=== PATIENT | female | born 1985 | race Caucasian/White ===

== ENCOUNTER 2020-01-10 11:46 | Emergency (ER) | payer SELFPAY ==
[2020-01-10 11:55] VITALS: BP 115/89; PULSE 84; RESP 20; TEMP 36.7; O2SAT 100
--- NOTE | 2020-01-10 12:26 | ED.SKABFB ---
HPI - Skin/Abscess/Foreign Bdy General Chief complaint: Skin/Abscess/Foreign Body Stated complaint: rash Time Seen by Provider: 01/10/20 12:27 Source: patient Mode of arrival: ambulatory Limitations: no limitations History of Present Illness HPI narrative: Dori Bruno is a 34 yo female with no prior medical history comes to the doctor's office with contact dermatitis appearing rash on hands arms back buttocks and back of the legs. 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 Personal laundry they have washed everything multiple times. Rashes not appear to be bedbugs but more like scabies Related Data Allergies Allergy/AdvReac Type Severity Reaction Status Date / Time No Known Allergies Allergy Verified 01/10/20 12:13 Review of Systems Review of Systems: Narrative: CONSTITUTIONAL: Denies fever, chills, sweats. EYES: Denies visual changes, redness, discharge. ENT: Denies rhinorrhea, congestion, sore throat, otalgia. CARDIOVASCULAR: Denies chest pain, palpitations, edema. RESPIRATORY: Denies dyspnea, wheezing, cough GASTROINTESTINAL: Denies abdominal pain, nausea, vomiting, diarrhea. GENITOURINARY: Denies dysuria, hematuria, abnormal discharge SKIN: itching. Arms legs buttocks, hairline NEUROLOGIC: Denies numbness, or focal weakness. PSYCHIATRIC: Denies anxiety or depression. PMFSH Family History Family History Other Asthma Social History Social History Smoking status: Never smoker Alcohol intake: never Comments At time of signature, I agree with nursing past medical, surgical, social and family history. There is no relevant family history pertinent to the presenting complaint. Exam Narrative: Exam Narrative: GENERAL: This is a well-nourished, well-developed patient, in moderate distress. HEAD: normocephalic, atraumatic. EYES: PERRL. Sclera clear/white. Vision is grossly intact. EARS: External ears normal, Hearing grossly intact. NOSE: External nose normal with no obvious nasal discharge, nares without redness, no rhinorrhea. THROAT: Mucous membranes moist, p NECK: Neck supple, non-tender without lymphadenopathy, masses or thyromegaly. CARDIOVASCULAR: Regular rate and rhythm without murmurs, gallops, or rubs. RESPIRATORY: Clear to auscultation. Breath sounds equal bilaterally. No wheezes, rales, or rhonchi. GASTROINTESTINAL: Abdomen soft, non-tender, nondistended. Bowel sounds are active. No hepato-splenomegaly, or palpable masses. No guarding. SKIN: warm, intact -rash on arms back buttocks back of knees that is inflamed, pruritic, rash along hairline NEURO: awake, alert, and oriented to person, place and time. There were no obvious focal neurologic abnormalities. Steady gait EXTREMITIES: Normal range of motion. No edema. No calf tenderness. Negative Homans sign bilaterally. BACK: Nontender without deformity or crepitance. . Course Course Emergency Course: Started on contact dermatitis meds including Atarax prednisone dose pack Pepcid and Benadryl Vital Signs Vital signs: Vital Signs Temperature 98.0 F 01/10/20 11:55 Pulse Rate 84 01/10/20 11:55 Respiratory Rate 20 01/10/20 11:55 Blood Pressure 115/89 01/10/20 11:55 Pulse Oximetry 100 01/10/20 11:55 Temperature 98.0 F 01/10/20 11:55 Pulse Rate 84 01/10/20 11:55 Respiratory Rate 20 01/10/20 11:55 Blood Pressure 115/89 01/10/20 11:55 Pulse Oximetry 100 01/10/20 11:55 MDM - Skin/Abscess/Foreign Bdy Differential Diagnosis Differential diagnosis: Likely eczema, insect bites, contact dermatitis and other Discharge Plan Discharge Clinical Impression: Insect bites, Urticaria Contact dermatitis Qualifiers: Contact dermatitis type: allergic Contact dermatitis trigger: other trigger Qualified Code(s): L23.89 - Allergic contact
== END 2020-01-10 12:48 | disposition home or self-care (01) ==
PROVIDERS: Emergency Provider Nurse Practitioner; PCP Physician Assistant
DX: S40.862A Insect bite (nonvenomous) of left upper arm, initial encounter (principal); S40.861A Insect bite (nonvenomous) of right upper arm, initial encounter; S30.860A Insect bite (nonvenomous) of lower back and pelvis, initial encounter; S80.262A Insect bite (nonvenomous), left knee, initial encounter; S80.261A Insect bite (nonvenomous), right knee, initial encounter; L23.89 Allergic contact dermatitis due to other agents; W57.XXXA Bitten or stung by nonvenomous insect and other nonvenomous arthropods, initial encounter
CPT/HCPCS: 99203; G0463

== ENCOUNTER 2022-04-01 15:37 | Emergency (ER) | payer OTHER, SELFPAY ==
--- NOTE | ~2022-04-01 | CT_ITS ---
EXAMINATION: CT abdomen pelvis wo con DATE: 04/01/2022 18:45 INDICATION: Right lower and left lower quadrant pain for 2 weeks. Diarrhea. TECHNIQUE: Computed tomography (CT) of the abdomen and pelvis was performed without intravenous contr ast. The dose-length product was 392.35 mGy-cm. Automated exposure control and iterative reconstructi on technique were employed. COMPARISON: None. FINDINGS: Lung bases are unremarkable. Heart size normal. No significant pleural or pericardial effus ion. The liver, spleen, pancreas, adrenal glands and kidneys and are unremarkable. Gallbladder is pre sent. Nonobstructive bowel gas pattern. Colonic diverticulosis without evidence for diverticulitis. T here is levoscoliosis. The appendix is not positively visualized. There is no pericecal inflammatory change to suggest appendicitis. No free air or free fluid is identified. IMPRESSION: 1. No acute abnormality of the abdomen or pelvis. Reviewed, dictated and finalized at location A.
[2022-04-01 15:47] VITALS: BP 134/73; PULSE 57; RESP 16; TEMP 36.3; O2SAT 100
[2022-04-01 15:54] VITALS: BP 121/72; PULSE 64; RESP 18; O2SAT 98
--- NOTE | 2022-04-01 16:45 | ED.ABDPAIN ---
HPI - Abdominal Pain General Chief Complaint: Abdominal Pain Stated Complaint: Right Lower ABD Pain Time Seen by Provider: 04/01/22 15:53 Source: patient Mode of arrival: ambulatory Limitations: no limitations History of Present Illness HPI narrative: Patient is a 36-year-old female who presents to the ED with report of lower abdominal pain. Patient reports having pain in her lower abdomen for the past 3 weeks, worsening over the past 3 days. She states the pain begins in her left lower quadrant but seems to be more focal in her right lower quadrant. She has taken Tylenol and Advil for this at home without much relief. She reports having occasional nausea and diarrhea, but denies rectal bleeding, constipation, vomiting. No nausea currently. Denies any fever, chills, recent cough or cold symptoms. She does mention having urinary urgency with small void urine, but denies any dysuria or hematuria. Related Data Allergies Allergy/AdvReac Type Severity Reaction Status Date / Time No Known Allergies Allergy Verified 01/10/20 12:13 Review of Systems Review of Systems: CONSTITUTIONAL: Denies fever, chills. CARDIOVASCULAR: Denies chest pain. RESPIRATORY: Denies cough or dyspnea. GASTROINTESTINAL: Reports bilateral lower ABD pain, nausea, diarrhea. Denies vomiting, rectal bleeding, or constipation. GENITOURINARY: Reports urinary urgency with small void urine. Denies dysuria or hematuria. SKIN: Denies rash or itching. MUSCULOSKELETAL: Denies back pain. All systems reviewed & are unremarkable except as noted in HPI and below PMFSH Past Medical History Medical History (Updated 04/01/22 @ 19:59 by Niurka Watson PA-C) Anxiety Bipolar disorder Surgical History Surgical History (Updated 04/01/22 @ 16:56 by Niurka Watson PA-C) History of tubal ligation Family History Family History Other Asthma Social History Social History (Updated 04/01/22 @ 16:56 by Niurka Watson PA-C) Smoking status: Current every day smoker Tobacco type: e-cigarettes/vaping Alcohol intake: never Exam Narrative: GENERAL: Well appearing, well-nourished, non-toxic, in no acute distress. HEAD: Normocephalic, atraumatic. NECK: Supple. No adenopathy, no masses. RESPIRATORY: Airway patent, respirations nonlabored. Clear to auscultation bilaterally, no rales, rhonchi, wheezing. CARDIOVASCULAR: Regular rate and rhythm without murmurs, rubs, or gallops. Radial pulses 2+ and equal bilaterally. ABDOMINAL: Soft, mild nonspecific tenderness to palpation in left lower quadrant, right lower quadrant, suprapubic region, nondistended, no hepatosplenomegaly. Normoactive BS. MUSCULOSKELETAL: Moves all extremities. Strength/ROM intact without gross deformities or TTP. SKIN: Warm, dry, normal color. No rashes. NEURO: A&O X3. Speech clear. Cranial nerves II-XII grossly intact. Steady gait. No ataxic movements. PSYCHIATRIC: Appropriate mood and affect. Normal interaction. Course Vital Signs Vital signs: Vital Signs Temperature 97.4 F L 04/01/22 15:47 Pulse Rate 57 L 04/01/22 15:47 Respiratory Rate 16 04/01/22 15:47 Blood Pressure 134/73 04/01/22 15:47 Pulse Oximetry 100 04/01/22 15:47 Oxygen Delivery Room Air 04/01/22 15:47 Temperature 97.4 F L 04/01/22 15:47 Pulse Rate 64 04/01/22 15:54 Respiratory Rate 18 04/01/22 15:54 Blood Pressure 121/72 04/01/22 15:54 Pulse Oximetry 98 04/01/22 15:54 Oxygen Delivery Room Air 04/01/22 15:47 MDM - Abdominal Pain MDM Narrative Medical decision making narrative: Patient presented to ED with 3-week history of nonspecific diffuse lower abdominal pain, worsening over the last 3 days. Vital signs stable upon arrival. Patient did have minimal tenderness on examination in lower abdomen. Laboratory evaluation notable for mild leukocytosis at 11.2. No significant electrolyte abnormality. Good kidney function. Good live
[2022-04-01 17:17] LABS: Basophils Absolute Auto 0.1 K/mm3 (0.0-0.1); Basophils Percent Auto 0.6 % (0.2-1.2); Eosinophils Percent Auto 0.4 % (0-4.4); Hematocrit 38.3 % (37.0-47.0); Hemoglobin 12.7 g/dL (12.0-15.0); Immature Granulocyte Absolute 0.05 K/mm3 (0.00-0.031); Immature Granulocyte Percent A 0.4 % (0-0.5); Lymphocytes Absolute Auto 2.94 K/mm3 (0.9-3.2); Lymphocytes Percent Auto 26.3 % (18.3-44.2); Mean Corpuscular HGB Conc 33.2 g/dl (32-36); Mean Corpuscular Hemoglobin 30.8 pg (26-34); Mean Platelet Volume 9.5 fl (7.4-10.4); Monocytes Absolute Auto 0.7 K/mm3 (0.1-0.6); Monocytes Percent Auto 6.6 % (2.6-8.5); Neutrophils Absolute Auto 7.3 K/mm3 (1.3-6.7); Neutrophils Percent Auto 65.7 % (45.5-73.1); Platelet Count Result 326 k/mm3 (150-375); Red Blood Count 4.12 M/mm3 (4.2-5.4); Red Cell Distribution Width 12.6 % (11.5-14.5); White Blood Count 11.2 K/mm3 (4.5-10.0)
[2022-04-01 17:28] LABS: Alanine Aminotransferase 11 U/L (6-35); Albumin Level 4.1 g/dL (3.5-5.1); Alkaline Phosphatase 75 U/L (38-126); Anion Gap 7 mmol/L (8-16); Aspartate Amino Transferase 24 U/L (14-36); Bilirubin,Total 0.4 mg/dL (0.2-1.3); Blood Urea Nitrogen 7 mg/dL (7-17); Calcium 8.8 mg/dL (8.4-10.2); Carbon Dioxide 23 mmol/L (22-30); Chloride 107 mmol/L (98-107); Estimated CRCL calculation 116 ml/min; Estimated Glomerular Filt Rate > 60; Glucose 93 mg/dL (65-110); Lipase 51 U/L (23-300); Potassium 3.8 mmol/L (3.4-5.0); Sodium 137 mmol/L (137-145)
[2022-04-01 17:46] LABS: Bacteria Urine Trace /hpf; Mucus Urine Moderate /lpf; Squamous Epithelial Cell Urine Many /hpf (Few)
[2022-04-01] MEDS: DICYCLOMINE HCL 10 MG CAPSULE 20 MG PO (17:47)
[2022-04-01] MEDS: SODIUM CHLORIDE 0.9% IV 1,000 ML 999 ML IV CONT (17:48)
[2022-04-01] MEDS: ONDANSETRON INJ 4 MG/2 ML VIAL IV PUSH (17:48)
[2022-04-01] MEDS: KETOROLAC 30 MG/ML VIAL (*BKC) IV PUSH (17:49)
[2022-04-01 17:55] LABS: Appearance Urine Cloudy (Clear); Color Urine Yellow (Yellow)
[2022-04-01 17:57] LABS: Add Urine Microscopic? YES; Bilirubin Urine Negative (Negative); Blood Urine Negative (Negative); Glucose Urine UA Negative (Negative); Ketones Urine Negative (Negative); Leukocyte Esterase Ur Negative LEU/UL (Negative); Nitrate Urine Negative (Negative); Protein Urine Trace mg/dL (Negative); Urobilinogen Urine 0.2 mg/dL (<2.0); pH Urine 7.5 (5.0-9.0)
[2022-04-01 19:00] VITALS: PULSE 57; RESP 18; O2SAT 99
[2022-04-01 19:19] VITALS: PULSE 79; RESP 14
--- NOTE | 2022-04-01 19:20 | PC.NURSE ---
Patient report received from RASHAD Alexander. This nurse assumed care of patient at this time.
--- NOTE | 2022-04-01 19:28 | PC.NURSE ---
called lab and added on UC to existing urine cup at 192
[2022-04-01 19:31] VITALS: PULSE 55; RESP 24
--- NOTE | 2022-04-01 19:44 | PC.NURSE ---
Patient requesting to leave AMA, PA and concrete pourer aware. Patient requesting to speak with software engineering project manager.
== END 2022-04-01 20:09 | disposition home or self-care (01) ==
PROVIDERS: Physician Assistant; Emergency Provider Emergency Medicine
DX: R10.30 Lower abdominal pain, unspecified (principal); F41.9 Anxiety disorder, unspecified; F31.9 Bipolar disorder, unspecified
CPT/HCPCS: 36415; 74176; 80053; 81001; 83690; 85025; 87086; 96361; 96365; 96375; 99284; A9270; J0131; J1885; J2405; J7030

== ENCOUNTER 2022-10-08 11:49 | Emergency (ER) | payer BC, SELFPAY ==
--- NOTE | 2022-10-08 11:50 | ED.URI ---
HPI - URI/Sore Throat General Chief Complaint: Upper Respiratory Infection Stated Complaint: ear pain and sore throat Time Seen by Provider: 10/08/22 11:50 Source: patient and RN notes reviewed History of Present Illness HPI Narrative: patient is a 36 female presents to urgent care complaints of left ear pain slight sore throat. Patient states last night and she has also grade fever. Patient taking Advil and using throat spray. Denies any known ill exposures. No acute distress noted. Patient aware of the plan of care. Some parts of this dictation were generated by voice recognition software and may contain typographical and/or grammatical inaccuracies. Related Data Allergies Allergy/AdvReac Type Severity Reaction Status Date / Time No Known Allergies Allergy Verified 10/08/22 12:02 Review of Systems Review of Systems: CONSTITUTIONAL: Denies fever, chills, or sweats. EYES: Denies visual changes, redness, or discharge. ENT: reports of left ear pain and sore throat CARDIOVASCULAR: Denies chest pain, palpitations, or edema. RESPIRATORY: Denies cough or dyspnea. GASTROINTESTINAL: Denies abdominal pain, nausea, vomiting, or diarrhea. GENITOURINARY: Denies dysuria or hematuria. SKIN: Denies rash or itching. MUSCULOSKELETAL: Denies back pain, joint pain, or myalgia. NEUROLOGIC: Denies headache, numbness, or weakness. All other systems reviewed are negative, except as documented in HPI. [facility] Past Medical History Medical History (Updated 10/08/22 @ 12:15 by DAYNA Page) Anxiety Bipolar disorder Surgical History Surgical History (Updated 04/01/22 @ 16:56 by Niurka Klein PA-C) History of tubal ligation Family History Family History Other Asthma Social History Social History (Updated 04/01/22 @ 16:56 by Niurka Klein PA-C) Smoking status: Current every day smoker Tobacco type: e-cigarettes/vaping Alcohol intake: never Comments At the time of my signature, I reviewed and agree with the nursing past medical, surgical, social, and family history. There is no relevant family history pertinent to the patient complaint. Exam Narrative: GENERAL: This is a well-nourished, well-developed patient, in no apparent distress. HEAD: normocephalic, atraumatic. EYES: PERRL. Sclera clear/white. Vision is grossly intact. EARS: External ears normal, auditory canals clear and without drainage, TMs normal without perforation. Hearing grossly intact. NOSE: External nose normal with no obvious nasal discharge, nares without redness, no rhinorrhea. THROAT: Mucous membranes moist. Moderate erythema posterior pharynx with mild to moderate bilateral tonsillar edema with exudate. Moderate postnasal drainage. NECK: Neck supple, non-tender Left submandibular lymphadenopathy CARDIOVASCULAR: Regular rate and rhythm without murmurs, gallops, or rubs. RESPIRATORY: Clear to auscultation. Breath sounds equal bilaterally. No wheezes, rales, or rhonchi. SKIN: warm, intact with no suspicious lesions or rash, good texture and turgor. NEURO: awake, alert, and oriented to person, place and time. There were no obvious focal neurologic abnormalities. EXTREMITIES: No clubbing, cyanosis, or edema. Course Course Level of Care: Express Care Visit Vital Signs Vital signs: Vital Signs Temperature 98.8 F 10/08/22 11:54 Pulse Rate 100 10/08/22 11:54 Respiratory Rate 14 10/08/22 11:54 Blood Pressure 121/70 10/08/22 11:54 Pulse Oximetry 100 10/08/22 11:54 Oxygen Delivery Room Air 10/08/22 11:54 Temperature 98.8 F 10/08/22 11:54 Pulse Rate 100 10/08/22 11:54 Respiratory Rate 14 10/08/22 11:54 Blood Pressure 121/70 10/08/22 11:54 Pulse Oximetry 100 10/08/22 11:54 Oxygen Delivery Room Air 10/08/22 11:54 reviewed MDM - URI/Sore Throat MDM Narrative Medical decision making narrative: Due to lack of re
[2022-10-08 11:54] VITALS: BP 121/70; PULSE 100; RESP 14; TEMP 37.1; O2SAT 100
== END 2022-10-08 12:18 | disposition home or self-care (01) ==
PROVIDERS: Emergency Provider Nurse Practitioner Family
DX: J03.90 Acute tonsillitis, unspecified (principal); F17.209 Nicotine dependence, unspecified, with unspecified nicotine-induced disorders
CPT/HCPCS: 99213; G0463

== ENCOUNTER 2025-01-07 10:23 | Emergency (ER) | payer SELFPAY ==
[2025-01-07 10:28] VITALS: BP 118/75; PULSE 70; RESP 16; TEMP 36.7; O2SAT 100
--- NOTE | 2025-01-07 11:12 | ED.URI ---
HPI - URI/Sore Throat General Chief Complaint: Upper Respiratory Infection Stated Complaint: respiratory problems Time Seen by Provider: 01/07/25 10:55 Source: patient, RN notes reviewed and old records reviewed Mode of arrival: ambulatory Limitations: no limitations History of Present Illness HPI Narrative: 39 year old female who presents to [facility] care with complaints of cough with complaints of chest burning which started on Monday. Patient reports some chills and sweats but no known fevers. 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 Patient reports that she has been taking DayQuil and NyQuil for her symptoms. Patient does vape daily. MD elicited complaint: cough and other (chest burning and chills and sweats) Onset (ago): day(s) (4) Severity: mild Able to tolerate fluids by mouth: Yes Treatments prior to arrival: other (DayQuil and NyQuil) Related Data Allergies Allergy/AdvReac Type Severity Reaction Status Date / Time No Known Allergies Allergy Verified 01/07/25 10:38 Review of Systems Review of Systems: CONSTITUTIONAL: Reports malaise, chills, sweats, no known fevers EYES: Denies visual changes, redness, or discharge. ENT: Reports some rhinorrhea, congestion, no sinus pain, no otalgia and no sore throat. CARDIOVASCULAR: Denies chest pain, palpitations, or edema. RESPIRATORY: Reports cough.? Denies dyspnea.reports burning in chest GASTROINTESTINAL: Denies abdominal pain, nausea, vomiting, diarrhea SKIN: Denies rash or itching. MUSCULOSKELETAL: Denies myalgia. NEUROLOGIC: Denies headache. All systems reviewed & are unremarkable except as noted in HPI and below PMFSH Past Medical History Medical History (Updated 01/08/25 @ 00:00 by Reina Moses) Anxiety Bipolar disorder Surgical History Surgical History (Updated 04/01/22 @ 16:56 by Niurka Klein PA-C) History of tubal ligation Family History Family History Other Asthma Social History Social History (Updated 01/08/25 @ 12:18 by Martha Gunter NP) Smoking status: Current every day smoker Tobacco type: e-cigarettes/vaping Alcohol intake: never Substance use type: does not use Living arrangements: with family Gender identity (if verbalized by the patient): Female Comments At time of signature, agree with nursing past medical, surgical, social and family history. There is no relevant family history pertinent to the presenting complaint Exam Narrative: GENERAL: Well-appearing, well-nourished, and in no acute distress. HEAD: Normocephalic EYES: PERRLA, conjunctivae clear ENT: Nares clear, turbinates edematous and erythematous, clear discharge. Mucous membranes moist. TM pearly mccray with dull light reflex bilaterally; no tragal tenderness. Oropharynx erythematous without lesions. Tonsils not enlarged and without exudate, no drooling, no hoarseness, no trismus, uvula midline. NECK: Supple. No lymphadenopathy CHEST: Clear to auscultation, breath sounds equal. No wheezing, rhonchi, rales, or stridor. No respiratory distress, speaks in full sentences.dry cough SAO2 100% on room air HEART: Regular rate and rhythm. No murmur heard. SKIN: Warm, dry, no rash. NEURO: Alert and oriented x3. PSYCH: Normal mood and affect Course Course Emergency Course: Patient is aware of diagnosis, understands and agrees to treatment plan.? Anticipatory guidance given.? Patient agrees to follow-up as directed and is aware of reasons to seek care at the emergency department. Portions of this record may have been created with voice recognition software Level of Care: Express Care Visit Vital Signs Vital signs: Vital Signs Temperature 36.7 C 01/07/25 10:28 Pulse Rate 70 01/07/25 10:28 Respiratory Rate 16 01/07/25 10:28 Blood Pressure 118/75 01/07/25 10:28 Pulse Oximetry 100 01/07/25 10:28 Oxygen Delivery Room Air 01/07/25 10:28 Temperature 36.7 C 01/07/25 10:28 Pulse Rate 70 01/07/25 10:28 Respiratory Rate 16 01/07/25 10:28 Blood Pressure 118/75 01/07/25 10:28 Pulse Oximetry 100 01/07/25 10:28 Oxygen Delivery Room Air 01/07/25 10:28 Reviewed MDM - URI/Sore Throat MDM Narrative Medical decision making narrative: Differential diagnosis considered: Salgado virus, strep pharyngitis, allergic rhinitis, upper respiratory tract infection, sinusitis, rhinosinusitis, nasopharyngitis. viral pharyngitis, otitis media, otitis externa, pneumonia, bronchitis, viral cough syndrome, viral syndrome, and influenza.? Exam findings show no acute concerns or changes; patient is non-toxic appearing and is in no distress.? Patient is appropriate for outpatient treatment and follow-up. Differential Diagnosis Differential diagnosis: Likely upper respiratory infection, viral infection, bronchitis and other (cough) Medical Records Attestation: I reviewed the patient's medical records. Lab Data Attestation: I reviewed the patient's lab results. Lab results narrative: influenza A negative, Influenza B negative, COVID antigen negative, strep screen negative, culture sent Labs: Lab Results 01/07/25 Range/Units 11:32 POC Influenza A Ag Negative (Negative) POC Influenza B Ag Negative (Negative) POC SARS CoV-2 Ag Negative (Negative) POC Grp A Strep Screen Negative (Negative) reviewed Critical Care Time Critical Care Time Critical Care Time: No Discharge Plan Discharge Clinical Impression: URI, acute Patient Disposition: Home, Self-Care Condition: Stable Instructions: Antibiotic Form, Upper Respiratory Infection (ED) Additional Instructions: Increase fluids especially juices and water [id number] cough and cold medicine of your choice for your symptoms Zyrtec Claritin or Peri daily Cough tablets as directed for cough--do not bite, chew or suck on--swallow whole Tylenol or ibuprofen for any fever pain Steroids as directed--take with food heat to the face 20-30 minutes 4-6 times a day for pain Salt water gargles, throat lozenges or throat sprays as desired If your symptoms persist, change or worsen significantly before you can contact your personal physician then please, without delay, go to the emergency department for further evaluation. Follow-up with PCP in 7-10 days or sooner if needed Patient Language: Portuguese Prescriptions: New methylprednisolone [Medrol (Stephen)] 4 mg tablets,dose pack See Rx Instructions .ROUTE .COMPLEX Qty: 21 0RF Rx Instructions: orally per package directions benzonatate 200 mg capsule 200 mg PO TID PRN (Reason: cough) Qty: 20 0RF Follow-up/Referrals: Stefan,MD Manish [Primary Care Provider] - Stand Alone Forms: Work/School Release IP Time of Disposition: 12:05 Quality [place] Coma Scale Eyes: Open Verbal: Oriented and Alert Motor: Follows Commands Branden Coma Total Score: 15
[2025-01-07 11:36] LABS: EDCOVIDSCREEN Negative (Negative); EDINFLUASCREEN Negative (Negative); EDINFLUBSCREEN Negative (Negative); EDSTREPNEGPOS1 Negative (Negative)
--- OUTSIDE RECORDS SUMMARY | 2025-01-07 11:44 | XMS_ITS | Encounter Summary ---
Author Organization [facility] Address [facility] [place] [address] Care Team Providers Care Billing Typist Name Role Phone Manish Aviles MD Primary Care Provider [phone] Encounter Details Date Type Department Care Team (Late st Contact Info) Description 06/03/2022 Freever Message Enc [facility] Multispecial[facility] - [address] [place] [address] [employer], [facility] Provider records release Social History Tobacco Use Types Packs/Day Years Used Date Smoking Tobacco: Former Cigarettes Smokeless Tobacco: Never PHQ-2 Answer Date Recorded PHQ-2 Score - If the patient scores above 3, please move on to questions 3-9 6 05/30/2022 Comments No Sex and Gender Information Value Date Recorded Sex Assigned at Not on file Legal Sex Female 7:38 PM CDT Gender Identity Not on file Sexual Orientation Not on file COVID-19 Exposure Response Date Recorded In the last 10 days, have yo u been in contact with someone who was confirmed or suspected to have Coronavirus/COVID-19? No / Unsure 05/30/2022 1:42 PM CDT documented as of this encounter Plan of Treatment Not on file documented as of this encounter Visit Diagnoses Not on filedocumented in this encounter Additional Health Concerns Assessment Noted Time PHQ-9 Depression Total Score: 22 022 3:03 PM CDT documented as of this encounter Care Teams Billing Typist Relationship Specialty Start Date End Date Manish Aviles MD [address] [address] PCP - General INTERNAL MEDICINE 05/30/22 documented as of this encounter
--- OUTSIDE RECORDS SUMMARY | 2025-01-07 11:45 | XMS_ITS | Clinical Summary ---
Author Organization [facility] Address [address] [place] [address] Care Team Providers Care Production Technologist Name Role Phone Manish Aviles MD Primary Care Provider [phone] Allergies No known active allergies Medications omeprazole (PRILOSEC) 40 MG capsuleIndicatio ns:Gastroesophag eal reflux disease with esophagitis, unspecified whether hemorrhage Take 1 capsule (40 mg total) by mouth daily. 90 capsule 1 2 Active Additional Information Patient not taking.Reported on 01/01/2025 famotidine (PEPCID) 20 MG tabletIndication s:Gastroesophage al reflux disease with esophagitis, unspecified whether hemorrhage Take 1 tablet (20 mg total) by mouth 2 (two) times daily. 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 30 tablet 3 3 Active ARIPiprazole (ABILIFY) 5 MG tabletIndication s:Bipolar I disorder (CMS/HCC HHS/HCC) Take 1 tablet (5 mg total) by mouth daily. 30 tablet 2 3 Active valACYclovir (VALTREX) 1 g tabletIndication s:Herpes zoster without complication Take 1 tablet (1,000 mg total) by mouth 3 (three) times daily. 9 tablet 3 Active Additional Information Patient not taking.Reported on 01/01/2025 doxepin (SINEQUAN) 10 MG capsuleIndicatio ns:Herpes zoster without complication Take 1 capsule (10 mg total) by mouth nightly at bedtime. Okay to refill thanks. 20 capsule 3 Active Additional Information Patient not taking.Reported on 01/01/2025 Active Problems Problem Noted Date Diagnosed Date Bipolar I disorder ([facility]) 08/26/2022 Encounters Date Type Department Care Team Description 01/03/2025 Telephone [facility] Medical [facility] [place] [address] [place] [address] Manish Aviles MD Mammography Order; Information 01/01/2025 4:20 PM DIETETICS TEACHER [facility] [place] [address] [place] [address] Manish Aviles MD Follow Up (Acute - found lump in breast. Found in the right, might also be one in the left. Found last month. Needs refills on medications ) 01/01/2025 Travel from Last 3 Months Immunizations Name Administration Dates Next Due Dtp (Generic) 04/14/1989, 7,05/02/1986, 986,09/19/1985 Fluzone (IIV3, Trivalent, 0. 5 ML Prefilled Syringe) 01/01/2025 Fluzone 6 Months+ Quad (0.5 mL Prefilled Syringe) 08/26/2022 Hepatitis A (Havrix [address]) 10/16/2012 Hepatitis B Pediatric 01/06/2000,07/24/1999,0804/1999 Influenza (Generic) 11/13/2015,12/06/2012 MMR (MMRII) 03/23/1993,05/14/1986 MODERNA COVID-19 (CHILD LIFE ASSISTANT SHEBA GARRETT), MRNA, LNP-S, PF, 50 MCG/ 0.25 ML DOSE 10/22/2021,10/14/2021 Polio Opv (Generic) 04/10/1989, 7,05/02/1986, 986,09/19/1985 Td (TDVAX) 06/11/1999 Tdap (Generic) 01/12/2016 Family History Medical History Relation Comments No Known Problems Father Colon polyps Maternal Grandmother Kidney Disease Mother Relation Status Comments Father Alive Maternal Grandmother Mother Alive Social History Tobacco Use Types Packs/Day Years Used Date Smoking Tobacco: Former Cigarettes Smokeless Tobacco: Never Tobacco Cessation:Counseling Given: Yes Comments:Quit 12/19/2019 Alcohol Use Standard Drinks/Week Comments Never 0 (1 standard drink = 0.6 oz pur e alcohol) PHQ-2 Answer Date Recorded Patient Health Questionnaire-2 Score 2 01/11/2023 Comments No Sex and Gender Information Value Date Recorded Sex Assigned at Not on file Legal Sex Female 7:38 PM CDT Gender Identity Not on file Sexual Orientation Not on file Last Filed Vital Signs Vital Sign Reading Time Taken Comments Blood Pressure 131/71 01/01/2025 4:24 PM DIETETICS TEACHER Pulse 55 01/01/2025 4:24 PM DIETETICS TEACHER Temperature 36.4 C (97.6 F) 01/01/2025 4:24 PM DIETETICS TEACHER Respiratory Rate 18 01/01/2025 4:24 PM DIETETICS TEACHER Oxygen Saturation 100% 01/01/2025 4:24 PM DIETETICS TEACHER Inhaled Oxygen Concentration - - Weight 64.8 kg (142 lb 12.8 oz) 01/01/2025 4:24 PM DIETETICS TEACHER Height 168.9 cm (5' 6.5 ) 01/01/2025 4:24 PM DIETETICS TEACHER Body Mass Index 22.7 01/01/2025 4:24 PM DIETETICS TEACHER Plan of Treatment Health Maintenance Due Date Last Done Comments Cervical Cancer Screening Pap with HPV Testing (Age 30 to 64) Every 5 Years 2014 Annual Physical 05/30/2023 05/30/2022 COVID-19 Vaccine ( season) 2024 10/22/2021, 10/14/2021, 03/20/2021, Additional history exists PHQ-2 (Physician [place]) 11/06/2024 01/11/2023 Mammogram Screening 2024 Cervical Cancer Screening Pap Smear (Age 30 to 64) Every 3 Years 10/24/2025 10/24/2022 Cervical Cancer Screening with HPV 10/24/2025 DTaP, Tdap and Td Vaccines (7 - Td or Tdap) 01/11/2026 01/12/2016, 06/11/1999, 04/14/1989, Additional history exists Hepatitis B Vaccines Completed 01/06/2000, 07/24/1999, 06/11/1999 Hepatitis C Completed 05/30/2022 Influenza Adult Completed 01/01/2025, 1011/2021, 11/13/2015, Additional history exists HPV Vaccines Aged Out No longer eligi ble based on patient's age to complete this topic Meningococcal B Vaccine Aged Out No l onger eligible based on patient's age to complete this topic Meningococcal Vaccine Aged Out No dejuan jorge eligible based on patient's age to complete this topic Pneumococcal Vaccine: Pediatrics (0 to 5 Years) and At-Risk Patients (6 to 64 Years) Aged Out No longer eligible based on patient's age to complete this topic RSV Immunizations Under 20 Months Aged Out No longer eligible based on patient's age to complete this topic Procedures Procedure Name Priority Date/Time Associated Diagnosis Comments CYTOPATH CERV/VAG THIN LAYER Routine 10/24/2022 7:46 AM DIETETICS TEACHER HEPATITIS C ANTIBODY Routine 05/30/2022 3:05 PM CDT Annual physical exam Encounter for medical examination to establish care General medical exam Encounter for hepatitis C screening test for low risk patient from Last 3 Months or Most Recently Relevant to Health Maintenance Results * Cytopath Cerv/Vag Thin Layer (10/24/2022 7:46 AM DIETETICS TEACHER) THIN PREP PAP [address] [phone] Department of Pathology Pathology Report CERVICAL/VAGINAL PAP SMEAR REPORT Name: DORI ACEVEDO Age: 1 1985 (Age: 36) Location: [facility] Sex: F Collected Date: 10/24/2022 [facility] #: [id number] Date Received: 10/26/2022 Date Reported: 10/26/2022 Provider: MANISH AVILES MD INTERPRETATION CERVICAL/ENDOCERVI ALEJANDRA: SATISFACTORY FOR EVALUATION. ENDOCERVICAL/TRANS FORMATION ZONE COMPONENT ABSENT. NEGATIVE FOR INTRAEPITHELIAL LESION OR MALIGNANCY. Electronically Signed Out By JERMAINE Gaffney (ASCP) CLINICAL HISTORY Z12.4 SCREENING PAP TEST ThinPrep Pap Test with HR HPV testing in patient > 21 years with ASC-US diagnosis. Date of Last Menstrual Period: 09/2022 Menstrual Status: Regular SPECIMEN SUBMITTED CERVICAL/ENDOCERVI ALEJANDRA Specimen Received:1 Thin Prep Vial, Image Assisted Pap (SMD) Please note: The Pap smear is not a diagnostic test. It is a screening test. Negative results on combined screening (Pap test and HPV-DNA) have a high negative predictive value (99.1-100 percent) for cervical cancer. The pap test is not effective in detecting cervical adenocarcinoma. [facility] 10/24/2022 7:46 AM DIETETICS TEACHER 10/26/2022 7:46 AM DIETETICS TEACHER Comment:CERVICAL/ENDOCERVICA L Manish Aviles MD PATHOLOGY/CYTOLOGY ORDERABLES Fi nal Result [facility] [address] [place] [address], [place] [phone] * HEPATITIS C ANTIBODY (05/30/2022 3:05 PM CDT) HEPATITIS C AB NON-REACTI VE NON-REACT JOJO 05/31/2022 8:07 PM CDT [facility] Comment: ANTIBODIES TO HCV NOT DETECTED. DOES NOT EXCLUDE THE POSSIBILITY OF EXPOSURE TO HCV. 05/30/2022 3:05 PM CDT Manish Aviles MD LABORATORY Final Result [facility] [address] [place] [address], [place] [phone] from Last 3 Months or Most Recently Relevant to Health Maintenance Care Teams Production Technologist Relationship Specialty Start Date End Date Manish Aviles MD [address] [id number] PCP - General INTERNAL MEDICINE 05/30/22
--- OUTSIDE RECORDS SUMMARY | 2025-01-07 11:45 | XMS_ITS | Encounter Summary ---
Author Organization [facility] Address [facility] [place] [address] Care Team Providers Care Supervisor Wood Crew Name Role Phone Manish Aviles MD Primary Care Provider [phone] Reason for Referral * Imaging (Routine) - New Request Specialty Diagnoses / Procedures Referred By Shelbi ernandez Referred To Contact RADIOLOGY Diagnoses Mass of upper outer quadrant of left breast Procedures MG DIAGNOSTIC VÍCTOR DIGI Manish Aviles MD [address] [facility] [address] [place] [id number] Phone: tel: fax: Referral ID Status Reason Start Date Expiration Date V isits Requested Visits Authorized [id number] New Request 01/06/2025 01/06/2026 1 1 UCT TECHNICIAN * Imaging (Routine) - New Request Specialty Diagnoses / Procedures Referred By Shelbi ernandez Referred To Contact RADIOLOGY Diagnoses Mass of upper outer quadrant of left breast Procedures BREAST LT BIRAD LTD Manish Aviles MD [address] [facility] [address] [place] [address] Phone: tel: fax: Referral ID Status Reason Start Date Expiration Date V isits Requested Visits Authorized New Request 01/01/2025 01/01/2026 1 1 UCT TECHNICIAN Reason for Visit * Reason Comments Follow Up Acute - found lump i n breast. Found in the right, might also be one in the left. Found last month. Needs refills on medications Encounter Details Date Type Department Care Team (Latest Contact Info) Description 01/01/2025 4:20 PM PRODUCT TECHNICIAN Office Visit [facility] - [place] [address] [address] [address] [place] [address] Manish Aviles MD [address] [facility] [address] [place] [address] Follow Up (Acute - found lump in breast. Found in the right, might also be one in the left. Found last month. Needs refills on medications ) Social History Tobacco Use Types Packs/Day Years [...] on file Sexual Orientation Not on file documented as of this encounter Last Filed Vital Signs Vital Sign Reading Time Taken Comments Blood Pressure 131/71 01/01/2025 4:24 PM PRODUCT TECHNICIAN Pulse 55 01/01/2025 4:24 PM PRODUCT TECHNICIAN Temperature 36.4 C (97.6 F) 01/01/2025 4:24 PM PRODUCT TECHNICIAN Respiratory Rate 18 01/01/2025 4:24 PM PRODUCT TECHNICIAN Oxygen Saturation 100% 01/01/2025 4:24 PM PRODUCT TECHNICIAN Inhaled Oxygen Concentration - - Weight 64.8 kg (142 lb 12.8 oz) 01/01/2025 4:24 PM PRODUCT TECHNICIAN Height 168.9 cm (5' 6.5 ) 01/01/2025 4:24 PM PRODUCT TECHNICIAN Body Mass Index 22.7 01/01/2025 4:24 PM PRODUCT TECHNICIAN documented in this encounter Patient Instructions * Attachments The following attachments cannot be sent through Care Everywhere. * Common breast problems ([place]) documented in this encounter Progress Notes * Manish Aviles MD - 01/01/2025 4:20 PM CSTAddended by: MANISH AVILES on: 01/06/2025 05:58 PM Modules accepted: Orders UCT TECHNICIAN * Manish Aviles MD - 01/01/2025 4:20 PM CSTSummary: Acute visit notes Images from the original note were not included. Internal Medicine Outpatient Progress Note CC: Follow Up (Acute - found lump in breast. Found in the right, might also be one in the left. Found last month. Needs refills on medications ) HPI: Dori Bruno is a 39-year-old female who is an established patient with me presents for alump in the left breast that patient fiance noticed about 2 months ago. She tells me she has known about it for the past 2 yrs. She tell me she has noticed it is more noticeable, more painful even without touching. She reports no nipple discharge. No rash on the left breast. Family history of breast cancer on both sides of family. She has never had a mammogram. Patient concerned as the lump has increased in size slightly. She has noticed slight retraction also of the left nipple though she naturally has a slightly retracted left nipple at baseline. She tells me her fiance concerned and patient was encouraged to come in to discuss. Problem List Patient Active Problem List Diagnosis Bipolar I disorder ([facility]) Past Medical History: Diagnosis Date ADHD Anxiety Bipolar disorder, unspecified ([facility]) Past Surgical History: Procedure Laterality Date COSMETIC SURGERY chin reconstruction REMOVAL OF FALLOPIAN TUBE TUBAL LIGATION 05/10/2009 Family History Problem Relation Name Age of Onset Kidney Disease Mother No Known Problems Father Colon polyps Maternal Grandmother Social History Tobacco Use Smoking status: Former Types: Cigarettes Smokeless tobacco: Never Tobacco comments: Quit 12/19/2019 Vaping Use Vaping status: Every Day Substances: Nicotine, Flavoring Devices: Disposable Substance Use Topics Alcohol use: Never Drug use: Yes Types: Marijuana Comment: inhaled and gummies Medications: Outpatient Medications Marked as Taking for the 01/01/25 encounter (Office Visit) with Manish Aviles MD Medication Sig Dispense Refill ARIPiprazole (ABILIFY) 5 MG tablet Take 1 tablet (5 mg total) by mouth daily. 30 tablet 2 escitalopram (LEXAPRO) 10 MG tablet Take 1 tablet (10 mg total) by mouth daily. 30 tablet 3 Allergies: Review of patient's allergies indicates: No Known Allergies Review of Systems Constitutional: Negative for chills, diaphoresis, fever, malaise/fatigue and weight loss. HENT: Negative. Eyes: Negative. Respiratory: Negative. Cardiovascular: Negative for chest pain, palpitations, orthopnea, claudication, leg swelling and PND. Gastrointestinal: Negative. Genitourinary: Negative. Musculoskeletal: Negative. Objective: Filed Vitals: 01/01/25 1624 BP: 131/71 Pulse: (!) 55 Resp: 18 Temp: 97.6 ??F (36.4 ??C) TempSrc: Core SpO2: 100% Weight: 64.8 kg (142 lb 12.8 oz) Height: 1.689 m (5' 6.5 ) Body mass index is 22.7 kg/m??. General alert, cooperative, no distress HEENT EOM's intact. Oral mucosa normal. Nasal septum is midline. Neck Supple, symmetrical, trachea midline, no adenopathy, no thyromegaly, no JVD. Lungs No acute respiratory distress, no accessory muscle use, symmetric motion of the chest wall, lungs are clear to auscultation bilaterally, no wheezes or rales. Heart Regular rate and regular rhythm. S1, S2 normal. No murmurs. No rubs, clicks, or gallops. Abdomen Soft, non-tender, non-distended. Bowel sounds normal. No masses. No hepatomegaly appreciated. Extremities Extremities atraumatic, no cyanosis, 2+ pedal pulses, no edema Skin Skin color, texture, turgor normal. No rashes or lesions appreciated. Neurologic No focal deficits, motor strength is grossly normal and symmetric Psych Normal mood and affect MSK No synovitis, no bony tenderness, no joint effusions Lymph Breast exam No cervical or supraclavicular adenopathy In the presence of a paper goods machine operator Terri Álvarez MA I performed bilateral breast exam. Normal right breast examination. Left breast appears to be the same size as the right breast on exam. Slight retraction of the nipple on the left. No peau d'orange. The upper inner, lower inner and lower outer quadrants of the left breast exam were normal. The left upper outer quadrant of the left breast had a 1 inch lump that wasslightly mobile and lumpy palpated. It was slightly tender. Both axillary exam without any lymph nodes or masses. Assessment and Plan: Encounter Diagnose(s) ICD-10-CM SNOMED CT(R) 1. Need for immunization against influenza Z23 NEEDS INFLUENZA IMMUNIZATION [70245] Flu Vaccine, 0.5 mL, 6+ Months (Single Dose Syringe Fluarix, Fluzone, Flulaval, or Afluria) 2. Mass of upper outer quadrant of left breast N63.21 LUMP IN UPPER OUTER QUADRANT OF LEFT BREAST US BREAST LT BIRAD LTD MG DIAGNOSTIC LT DIGI US BREAST LT BIRAD LTD MG DIAGNOSTIC LT DIGI 1. Need for immunization against influenza - [78386] Flu Vaccine, 0.5 mL, 6+ Months (Single Dose Syringe Fluarix, Fluzone, Flulaval, or Afluria) 2. Mass of upper outer quadrant of left breast - US BREAST LT BIRAD LTD; Future - MG DIAGNOSTIC LT DIGI; Future - US BREAST LT BIRAD LTD - MG DIAGNOSTIC LT DIGI Counseling given: Yes Tobacco comments: Quit 12/19/2019 I personally spent a total of 20 minutes on the day of the encounter. This includes cyqt-br-mfyv and jwp-ezgl-nq-face time I provided on the day of the encounter & excludes time spent performing separately reportable services. Side effects and less common but more severe adverse effects of recommended medical therapies were explained to the patient. Follow up office visit for your annual physical. Requested MyChart or telephone follow up prn if symptoms change, worsen, or persist, or if side effect of treatment is experienced. DRAGON: This dictation was at least in part performed using [employer] speak and there may be some inherent flaws in this hole digger due to the nature of this program. Manish Aviles MD Internal Medicine [facility], [facility]. UCT TECHNICIAN documented in this encounter Plan of Treatment Scheduled Orders Name Type Priority Associated Diagnoses Orde r Schedule US BREAST LT BIRAD LTD Ultrasound Routine Mass of upper outer quadrant of left breast Expected: 01/01/2025, Expires: 01/01/2026 MG DIAGNOSTIC VÍCTOR DIGI MAMMO Routine Mass of upper outer quadrant of left breast Ordered: 01/06/2025 documented as of this encounter Visit Diagnoses Diagnosis Need for immunization against influenza- Primary Need for prophylactic vaccination and inoculation against influenza Mass of upper outer quadrant of left breast documented in this encounter Additional Health Concerns Assessment Noted Time PHQ-9 Depression Total Score: 18 022 3:34 PM PRODUCT TECHNICIAN documented as of this encounter Care Teams Supervisor Wood Crew Relationship Specialty Start Date End Date Manish Aviles MD [address] [address] PCP - General INTERNAL MEDICINE 05/30/22 documented as of this encounter
--- OUTSIDE RECORDS SUMMARY | 2025-01-07 11:45 | XMS_ITS | Encounter Summary ---
Author Organization [facility] Address [facility] [place] [address] Care Team Providers Care Medical Biller Name Role Phone Manish Aviels MD Primary Care Provider [phone] Encounter Details Date Type Department Care Team (Late st Contact Info) Description 12/29/2022 P2 Science Message Enc [facility] Medical [facility] Multispecialty Care - [address] [place] [address] Jemma Iraheta NP Results Social History Tobacco Use Types Packs/Day Years Used Date Smoking Tobacco: Former Cigarettes Smokeless Tobacco: Never Comments:Quit 12/19/2019 Alcohol Use Standard Drinks/Week Comments Never 0 (1 standard drink = 0.6 oz pur e alcohol) PHQ-2 Answer Date Recorded Patient Health Questionnaire-2 Score 3 10/24/2022 Comments No Sex and Gender Information Value Date Recorded Sex Assigned at Not on file Legal Sex Female 7:38 PM CDT Gender Identity Not on file Sexual Orientation Not on file COVID-19 Exposure Response Date Recorded In the last 10 days, have yo u been in contact with someone who was confirmed or suspected to have Coronavirus/COVID-19? No / Unsure 12/29/2022 12:47 PM RN OR LVN documented as of this encounter Plan of Treatment Not on file documented as of this encounter Visit Diagnoses Not on filedocumented in this encounter Additional Health Concerns Assessment Noted Time PHQ-9 Depression Total Score: 18 022 3:34 PM RN OR LVN documented as of this encounter Care Teams Medical Biller Relationship Specialty Start Date End Date Manish Aviles MD [address] [address] PCP - General INTERNAL MEDICINE 05/30/22 documented as of this encounter
--- OUTSIDE RECORDS SUMMARY | 2025-01-07 11:45 | XMS_ITS | Clinical Summary ---
Author Organization [facility] Address [address] [place] [address] Phone Care Team Providers Care Jet Wiper Name Role Phone Manish Aviles MD Primary Care Provider [phone] Allergies No known active allergies Medications busPIRone (BUSPAR) 15 MG Tablet Take 15 mg by mouth 2 times daily. Active FLUoxetine HCl (PROZAC PO) Take 60 mg by mouth daily. Active Amphetamine-Dex troamphetamine 25 MG CAPSULE SR 24 HR Take 25 mg by mouth every morning. Active HYDROcodone-rory taminophen (NORCO) 5-325 MG Tablet Take 1-2 Tabs by mouth every 4 hours as needed for Pain. 20 Tab 0 6 Active traMADol (ULTRAM) 50 MG Tablet Take 1 Tab by mouth every 6 hours as needed for Pain. 30 Tab 0 6 Active meloxicam (MOBIC) 7.5 MG Tablet Take 1 Tablet by mouth daily. 30 Tablet 2 Active omeprazole (PriLOSEC) 40 MG CAPSULE DELAYED RELEASE Take 40 mg by mouth. 2 Active HYDROcodone-rory taminophen (NORCO) 5-325 MG TabletIndicatio ns:Contusion of right hip,Facial contusion Take 1 Tablet by mouth every 8 hours as needed for Moderate or more severe pain. 12 Tablet 2 Active hydrocortisone 2.5 % Cream Apply 2 times daily. Application Site: Rash on face twice a day for up to 1 week 30 g 3 Active Immunizations Immunization Administration Dates Next Due Covid-19, Mrna, Lnp-s, PF, 5 0 mcg/0.25 mL dose (Moderna) 10/14/2021 TDAP Vaccine 01/12/2016 Social History Tobacco Use Types Packs/Day Years Used Date Smoking Tobacco: Former Cigarettes Smokeless Tobacco: Never Comments No Sex and Gender Information Value Date Recorded Sex Assigned at Not on file Legal Sex Female 11:08 PM CDT Gender Identity Not on file Sexual Orientation Not on file Last Filed Vital Signs Vital Sign Reading Time Taken Comments Blood Pressure 118/90 02/24/2023 7:39 PM CDT Pulse 60 02/24/2023 7:39 PM CDT Temperature 36.4 C (97.6 F) 02/24/2023 6:26 PM CDT Respiratory Rate 18 02/24/2023 7:39 PM CDT Oxygen Saturation 100% 02/24/2023 7:39 PM CDT Inhaled Oxygen Concentration - - Weight 61.7 kg (136 lb) 02/24/2023 6:26 PM CDT Height 167.6 cm (5' 6 ) 02/24/2023 6:26 PM CDT Body Mass Index 21.95 02/24/2023 6:26 PM CDT Plan of Treatment Health Maintenance Due Date Last Done Comments Mammogram 1984 Pap Smear 2005 Cervical Cancer Screening (CCS) 2014 HPV/Cotest 2014 Influenza Immunization (#1) 07/07/202408/07, 12/06/2012, 12/06/2012 SARS-COV-2 Immunization ( season) 2024 10/22/2021, 10/14/2021, 03/20/2021, Additional history exists Discussion re Starting/Frequency of Mammograms 2024 Respiratory Syncytial Virus (RSV) Immunization (Adult) (1 - 1-dose 75+ series) 2059 Hepatitis B Immunization Completed 000, 07/24/1999, 06/11/1999 DTaP/Tdap/Td Immunization Discontinued 2015, 06/11/1999, 04/14/1989, Additional history exists Hepatitis C Virus (HCV) Screening Completed 05/30/2022 Meningococcal Immunization (ACWY) Aged Out No longer eligible based on patient's age to complete this topic Pneumococcal Immunization Combined Aged Out No longer eligible based on patient's age to complete this topic Rotavirus Immunization Aged Out No lo nger eligible based on patient's age to complete this topic Additional Health Concerns Infection Onset Date Last Indicated ESBL 08/24/2022 08/24/2022 Insurance [facility] Care Teams Jet Wiper Relationship Specialty Start Date End Date Manish Aviles MD [address] [address] PCP - General Internal Medicine 06/05/22
--- OUTSIDE RECORDS SUMMARY | 2025-01-07 11:45 | XMS_ITS | Encounter Summary ---
Author Organization [facility] Address [address] [place] [address] Phone Care Team Providers Care Golf Course Mechanic Name Role Phone Maxim Nelson Primary Care Provider [phone] Provider, None Primary Care Provider Manish Sullivan MD Primary Care Provider [phone] Encounter Details Date Type Department Care Team (Late st Contact Info) Description 10/06/2021 Lab Requisition [facility] [address] [place] [address] Eileen Loaiza, PRESIDENTIAL SUPPORT SPECIALIST, HIGH PRESSURE BOILER OPERATOR [address] [place] [address] Encounter for pre-employment examination Social History Tobacco Use Types Packs/Day Years Used Date Smoking Tobacco: Every Day Cigarettes Smokeless Tobacco: Never Comments No Sex and Gender Information Value Date Recorded Sex Assigned at Not on file Legal Sex Female 11:08 PM CDT Gender Identity Not on file Sexual Orientation Not on file documented as of this encounter Plan of Treatment Not on file documented as of this encounter Procedures Procedure Name Priority Date/Time Associated Diagnosis Comments QUANTIFERON-TB GOLD PLUS Routine 10/06/2021 10:25 AM JANITOR CLEANER Encounter for pre-employment examination documented in this encounter Results * QUANTIFERON-TB GOLD PLUS (10/06/2021 10:25 AM JANITOR CLEANER) NIL CONTROL 0.03 <8.01 IU/mL 10/08/2021 2:11 PM [facility] TB ANTIGEN 1 0.01 <0.35 IU/mL 10/08/2021 2:11 PM [facility] TB ANTIGEN 2 0.01 <0.35 IU/mL 10/08/2021 2:11 PM [facility] MITOGEN CONTROL >10.00 >0.49 IU/mL 10/08/20 2:11 PM [facility] INTEPRETATION TB NEGATIVE NEGATIVE, NEGATIVE (TB antigen response less than 25% of internal negative control value) 10/08/2021 2:11 PM [facility] Comment:No immune response t o Mycobacterium tuberculosis antigens was noted. M. tuberculosis infection unlikely. Blood No Phlebotomy Charged / Unknown 10/06/2021 10:25 AM JANITOR CLEANER 10/07/2021 7:17 AM [facility] [place] - 10/08/2021 2:11 PM JANITOR CLEANER A POSITIVE QUANTIFERON-TB GOLD PLUS RESULT SHOULD NOT BE THE SOLE OR DEFINITIVE BASIS FOR DETERMINING INFECTION WITH M. TUBERCULOSIS. Diagnosing or excluding tuberculosis disease, and assessing the probability of LTBI, requires a combination of epidemiological, historical, medical and diagnostic findings (e.g., acid fast bacilli (AFB) smear and culture, chest xray) that should be taken into account when interpreting QFT-Plus results. Furthermore, the magnitude of the measured gamma interferon level cannot be correlated to stage or degree of infection, level of immune responsiveness, or likelihood for progression to active disease. The Nil control adjusts for background (e.g., elevated levels of circulating gamma interferon or presence of heterophile antibodies). The Mitogen control serves as an internal positive control and verifies each specimen tested can produce a gamma interferon response. Low mitogen may occur with insufficient lymphocytes, reduced lymphocyte activity due to improper specimen handling, filling/mixing of the Mitogen tube, or inability of the patient's lymphocytes to generate gamma interferon. Infection with other Mycobacteria, including M. kansasii, M. szulgai, and M. marinum, may cause positive results. A negative QuantiFERON-TB Gold Plus result does not preclude the possibility of M. tuberculosis infection or tuberculosis disease: false negative results can be due to stage of infection (e.g., specimen obtained prior to the development of cellular immune response), co-morbid conditions which affect immune function, or other individual immunological factors. The minimum number of lymphocytes required for a reliable test result has not been established and may also be variable. The performance of the [place] format of the QuantiFERON-TB Gold Plus test has not been extensively evaluated with specimens from the following groups of individuals: 1. Individuals who have impaired or altered immune function such as those who have HIV infection or AIDS; those who have transplantation managed with immunosuppressive treatment; or others who receive immunosuppressive drugs (e.g., corticosteroids, methotrexate, azathioprine, cancer chemotherapy); and those who have other clinical conditions: diabetes, silicosis, chronic renal failure, hematological disorders (e.g., leukemia and lymphomas), and other specific malignancies (e.g., carcinoma of the head or neck and lung). 2. Individuals younger than age 17 years 3. women Eileen Loaiza APRN, CNP IMMUNOLOGY ORDERABLES F inal Result [facility] [address] [place] [address], documented in this encounter Visit Diagnoses Diagnosis Encounter for pre-employment examination Health examination of defined subpopulation documented in this encounter Additional Health Concerns Infection Onset Date Last Indicated Resolved Time ESBL 08/24/2022 08/24/2022 documented as of this encounter Care Teams Golf Course Mechanic Relationship Specialty Start Date End Date Maxim Nelson PAC [address] [place] [address] PCP - General Physician Airport Security Screener 01/12/16 01/27/22 Provider, None [place] PCP - General 01/28/22 06/04/22 Manish Aviles MD [address] [address] PCP - General Internal Medicine 06/05/22 documented as of this encounter
--- OUTSIDE RECORDS SUMMARY | 2025-01-07 11:45 | XMS_ITS | Encounter Summary ---
Author Organization [facility] Address [facility] [place] [address] Care Team Providers Care Automation Tender Name Role Phone Manish Aviles MD Primary Care Provider [phone] Encounter Details Date Type Department Care Team (Late st Contact Info) Description 02/27/[address] [facility] Multispecialty Care - [place] [address] [address] [place] [address] Manish Aviles MD [address] [place] [address] [address] [place], [place] [id number] Medical Social History Tobacco Use Types Packs/Day Years [...] suspected to have Coronavirus/COVID-19? No / Unsure 02/27/2023 11:22 AM CDT documented as of this encounter Plan of Treatment Not on file documented as of this encounter Visit Diagnoses Not on filedocumented in this encounter Additional Health Concerns Assessment Noted Time PHQ-9 Depression Total Score: 18 022 3:34 PM SQL MANAGER documented as of this encounter Care Teams Automation Tender Relationship Specialty Start Date End Date Manish Aviles MD [address] [facility] [address] [place] [address] PCP - General INTERNAL MEDICINE 05/30/22 documented as of this encounter
--- OUTSIDE RECORDS SUMMARY | 2025-01-07 11:45 | XMS_ITS | Data Portability ---
[facility] [address] [place] [address] Care Team Providers Care Extracorporeal Circulation Specialist Name Role Phone NAZANIN NELSON Primary Care Provider Assessment No assessment recorded. Plan of Treatment Reminders Order Date Submit Date Provider Last Modified By Organization Details Last Modified Time Details Appointments None recorded. Lab unlisted lab - beta HCG, quantitati ve 2015 016 [facility], [address] [place] [address], [address], [place], [address], 6 06:22:30 Referral None recorded. Procedures None recorded. Surgeries None recorded. Imaging ultrasound , pelvic transabdom inal & transvagin al 2015 016 [email or web address] 1 [facility], [address] [place], [address], 6 12:13:54 Medication Orders hydroxyzin e pamoate 25 mg capsule 2019 020 INTERFACE [facility], [address] [place] [address], [address], 0 16:55:03 fluoxetine 40 mg capsule 2019 020 INTERFACE [facility], [address] [place] [address], [address], 0 16:54:58 hydroxyzin e pamoate 25 mg capsule 2019 020 INTERFACE [facility], [address] [place], [address], 0 12:38:45 Latuda 20 mg tablet 2019 020 INTERFACE [facility], [address] [place], [address], 0 12:38:41 Tubersol 5 tub. unit/0.1 mL intraderma l injection solution 2014 015 [email or web address] Not available 0 12:20:55 Patient TargetsNo targets recorded. Patient Instructions Encounter Date Encounter Id Patient Instructions Last Modified By Organization Details Last Modified Time 01/20/2016 [id number] abdominal pain: care instructions [email or web address] Not available 01/20/2016 11:27:17 01/27/2020 [id number] anxiety disorder : care instructions [email or web address] Not available 01/27/2020 12:38:31 upper respirator y infection (cold): care instructions [email or web address] Not available 01/27/2020 12:36:04 Reason for Referral None Reported. Results Created Date Observation Date Name Description Value Unit Range Abnormal Flag Note LastModifiedBy Organization Detail LastModifiedTime 10/06/20 15 10/07/2015 TSH + free T4, serum TSH 1.190 uIU/m L 0.450- 4.500 Not Available [facility] [address] [place], [address], 10/07/2015 08:56:39 10/06/20 15 10/07/2015 TSH + free T4, serum T4,free(dire ct) 1.32 NG/dL 0.82-1 .77 Not Available [facility] [address] [place], [address], 10/07/2015 08:56:39 01/20/20 16 01/22/2016 beta- HCG, quant itati ve, serum or plasm a beta HCG, quantitative <0.5 mIU/m L BECKM AN ICMA METHO DOLOG Y REFER ENCE RANGE : GESTA TION: BY WEEK RANGE 0-1W 5 - 50 2W 50 - 500 3W 100 - 47697 4W 1000 - 37828 5W 42328 - 37926 0 6 - 8W 31221 - 98186 0 9 - 12W 44[address] - 96617 0 ALL AGES: 0.0 - 4.9 NON-P REGNA NT FEMAL ES: < 5 POSTM ENOPA USAL: < 9.5 Not Available [facility] [address] [facility], [place], [address], 01/23/2016 06:22:30 Result Notes None recorded. Problems Name Problem SNOMED Code Status Onset Date Resolution Date Notes Provider Name and Address Organization Details Recorded Time Bipolar I disorder 651764747 Active RACHEAL Nath, [place] - [facility] 6 11:05:01 Abdominal pain 73255308 Active Nazanin Nelson PA-C Attn: Callie escamilla,[address] [place], [address] , [place] - [facility] 6 11:23:02 Upper respiratory infection 35221312 Active RACHEAL Nath, [place] - [facility] 6 11:05:01 Problem Notes None recorded. Procedures Surgical History Date Name Laterality Status Provider Name and Address Organization Details Recorded Time Other completed Kaitlin bradley [place] 10/23/2014 19:36:55 Imaging Results None recorded. Procedure Notes None recorded. Medical Equipment None Reported. Allergies No known drug allergies Medications Name Sig Start Date Stop Date Status Note LastModified by Organization Details LastModified Time fluoxetin e 40 mg capsule TAKE 1 CAPSULE BY MOUTH ONCE DAILY FOR 90 DAYS active Not Available Not Available No t Available buspirone 5 mg tablet Take 1 tablet twice a day by oral route for 30 days. 01/26 completed Not Available Not Available Not Available naproxen 375 mg tablet 01/26 completed Not Available Not Available Not Available hydrocodo ne 5 mg-acetam inophen 325 mg tablet 01/26 completed Not Available Not Available Not Available Keflex 500 mg capsule Take 1 capsule every 8 hours by oral route as directed for 10 days. 01/26 completed Not Available Not Available Not Available famotidin e 40 mg tablet TAKE 1 2 (ONE HALF) TABLET BY MOUTH TWICE DAILY FOR 5 DAYS active Not Available Not Available No t Available Tubersol 5 tub. unit/0.1 mL intraderm al injection solution Take by intrader mal route. 01/26 completed Negative Not Available Not Available Not Available permethri n 5 % topical cream THOROUGH LY MASSAGE INTO THE SKIN FROM THE HEAD TO THE SOLES OF THE FEET. LEAVE ON FOR 8 14 HOURS. WASH OFF THOROUGH LY active Not Available Not Available No t Available tramadol 50 mg tablet 01/26 completed Not Available Not Available Not Available quetiapin e 100 mg tablet Take 1 tablet twice a day by oral route for 30 days. 01/26 completed Not Available Not Available Not Available gabapenti n 300 mg capsule TAKE ONE CAPSULE BY MOUTH THREE TIMES DAILY 01/26 completed Not Available Not Available Not Available methylpre dnisolone 4 mg tablets in a dose pack TAKE BY MOUTH DIRECTED ON INSIDE OF PACKAGE 01/26 completed Not Available Not Available Not Available naproxen 500 mg tablet 01/26 completed Not Available Not Available Not Available hydroxyzi ne pamoate 25 mg capsule TAKE 1 CAPSULE BY MOUTH THREE TIMES DAILY NEEDED active Not Available Not Available No t Available azithromy tamela 500 mg tablet Take 1 tablet every day by oral route for 3 days. 01/26 completed Not Available Not Available Not Available quetiapin e 50 mg tablet Take 1 tablet every day by oral route at bedtime for 30 days. 01/26 completed Not Available Not Available Not Available Latuda 20 mg tablet Take 1 tablet every day by oral route for 30 days. 2019 active Not Available Not Available Not Avai lable Vitals Date Recorded Body weight Oxygen saturation Oxygen saturation in Arterial blood by Pulse oximetry Heart rate Systolic blood pressure Diastolic blood pressure Provider Name and Address Organization Details Last Updated DateTime 0 65259.0 8 g 98 % 98 % 97 /min 110 mm[Hg] 60 mm[Hg] Emma Platt [place] [facility] 0 12:25:01 Date Recorded Body temperature Provider Name a nd Address Organization Details Last Updated DateTime 01/27/2020 98.2 [degF] Nazanin Nelson PA-C Attn: Accounting,[address] [facility], [place], [address], [place] - [facility] 01/27/2020 12:32:16 Date Recorded Body height Body weight Body mass index (BMI) Systolic blood pressure Diastolic blood pressure Provider Name and Address Organization Details Last Updated DateTime 01/20/2016 167.64 cm 84861.90 2482 g 22.4 kg/m2 110 mm[Hg] 70 mm[Hg] Keisha Rosado [place] 6 11:08:18 Social History Question Answer Notes LastModified by Organizat ion Details LastModified Time Tobacco Smoking Status Current Every Day Smoker Kaitlin Faust MA null, [place] 10/23/2014 19:36:55 In The 14 Days Before Symptom Onset, Have You Had Close Contact With A Laboratory-confirm ed COVID-19 While That Case Was Ill? No Information n ot available 01/27/2020 If Patient Spent Time In [facility] - Does The Patient Live In [facility]? No Information not available 01/27/2020 In The 14 Days Before Symptom Onset, Have You Had Close Contact With A Person Who Is Under Investigation For COVID-19 While That Person Was Ill? No Information not available 01/27/2020 In The 14 Days Before Symptom Onset, Did The Patient Spend Time In [facility]? No Information not available 01/27/2020 Have You Been To An Area Known To Be High Risk For COVID-19? 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 07/09/2020 Information not available 07/09/2020 General Stress Level High Information not available 01/27/2020 On What Date Was Tobacco Cessation Counseling Provided? 07/09/2020 Information not available 07/09/2020 How Many Years Have You Smoked Tobacco? 15 [email or web address] Information not available 10/23/2014 Sex: Unknown Functional Status None recorded. Mental Status None recorded. Family History Nothing Reported Notes:Hx of anemia, ADHD Medical History Condition Response Anxiety Disorder Y Muscle, Joint, or Bone Problems Y Anemia Y Headaches Y Thyroid Problems Y Kidney or Bladder Problems Y Depression Y Asthma Y Gynecological HistoryNo gynecological history recorded. Obstetrics History GPAL:G 0 P 0 0 0 0 Immunizations Vaccine Type Date Status Note Provider Nam e and Address Organization Details Recorded Time Influenza, split virus, trivalent, preservative 6 completed Not Available [facility] 2019 02:32:29 Past Encounters Encounter ID Performer Location Encounter Start Date Encounter Closed Date Diagnosis/Indication Diagnosis SNOMED-CT Code Diagnosis ICD10 Code Diagnosis Note [id number] [facility] [address] [place] [address] 10/23/2014 19:24:55 10/27/2014 12:33:05 Upper respiratory infection 64337274 [id number] Kaitlin Faust MA [facility] [address] [place] [address] 07/23/2015 14:30:41 07/23/2015 14:54:37 Upper respiratory infection 05984704 Bipolar I disorder 428716587 [id number] Nazanin Nelson PA-C [facility] [address] [place] [address] 10/06/2015 09:49:45 10/06/2015 11:02:11 Bipolar I disorder 195020488 F31.9 [id number] Nazanin Nelson PA-C [facility] [address] [place] [address] 10/20/2015 10:20:18 10/20/2015 11:03:15 Bipolar I disorder 080811400 F31.9 Upper resp iratory infection 76603971 J06.9 [id number] Nazanin Nelson PA-C [facility] [address] [place] [address] 10/21/2015 13:54:20 10/21/2015 15:08:20 Active or passive immunization 613552630 Z23 [id number] Nazanin Nelson PA-C [facility] [address] [place] [address] 11/13/2015 14:58:16 11/16/2015 09:26:54 Influenza vaccine needed 0295785186 106 Z23 [id number] Nazanin Nelson PA-C [facility] [address] [place] [address] 01/20/2016 10:55:18 01/20/2016 11:35:25 Abdominal pain 34308417 R10.9 [id number] Nazanin Nelson PA-C [facility] [address] [place] [address] 01/27/2020 12:03:29 01/27/2020 12:46:20 Upper respiratory infection 33543158 J00 Generalize d anxiety disorder 01711484 F41.1 Bipolar I disorder 58677 6008 F31.9 [id number] Nazanin Nelson PA-C [facility] [address] [place] [address] 07/09/2020 09:46:19 07/09/2020 17:17:36 Generalized anxiety disorder 76424052 F41.1 Bipolar I disorder 46260 6008 F31.9 Health Concerns Section Related Observation LastModified by Organization Detai ls LastModified Time None Recorded Concern Status LastModified by Organization Details LastModified Time None Recorded Advance Directives Directive None Recorded Payers Encounter Date Sequence Insurance Name Policy Number Policy An Covered Member ID An Member ID Guarantor Name 10/21/2015 1 [facility] PRIOR TO 05/06/2021 (MEDICAID REPLACEMENT - HMO) Dori Bruno [id number] Dori Bruno 11/13/2015 1 [facility] PRIOR TO 05/06/2021 (MEDICAID REPLACEMENT - HMO) Dori Bruno [id number] Dori Bruno 01/20/2016 1 [facility] PRIOR TO 05/06/2021 (MEDICAID REPLACEMENT - HMO) Dori Bruno [id number] Dori Bruno 07/09/2020 1 *SELF PAY* As charline Bruno Notes Date Note Type Note Provider Name and Address Organization Details Recorded Time 01/20/2016 text/html has abdominal pain and wt gain. reports that she has frequency was put on antibiotics. 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 Nazanin Nelson PA-C Attn: Accounting,[address] [facility], [place], [address], [facility] 07/09/2020 16:57:15 OBGyn Episode No OBEpisode recorded.
--- OUTSIDE RECORDS SUMMARY | 2025-01-07 11:45 | XMS_ITS | Encounter Summary ---
Author Organization [facility] Address [address] [place] [address] Care Team Providers Care Telecom Coordinator Name Role Phone Manish Aviles MD Primary Care Provider [phone] Reason for Visit * Reason Onset Date Comments Mammography Order 01/03/2025 Information 01/03/2025 Encounter Details Date Type Department Care Team (Late st Contact Info) Description 01/03/2025 Telephone [facility] Multispecialty Care - [place] [address] [address] [place] [address] Manish Aviles MD [address] [place] [address] [address] [place], [place] [phone] Mammography Order; Information Social History Tobacco Use Types Packs/Day Years [...] on file documented as of this encounter Progress Notes * Shantel Aguilar MA - 01/07/2025 10:57 AM CST This was faxed to [facility]. Health dept. on 01/07/25 ING OPERATOR * Lindsey Wagner - 01/06/2025 2:17 PM CST [facility] is requesting that the order for mammogram be changed to bilateral and faxed to [phone]. They received our office notes. ING OPERATOR * Terri Rosales MA - 01/03/2025 10:59 AM CSTAddended by: TERRI ROSALES on: 01/03/2025 10:59 AM Modules accepted: Orders ING OPERATOR * Hitesh Rodriguez - 01/03/2025 9:18 AM CST Georgina from [facility] called regarding pt, they are needing her Orders changedfor her Mammogram o Diagnostic Bilateral Left Breast, they are also needing office visit notes from01/01/25, pls call if any questions. Ph-[phone] ING OPERATOR documented in this encounter Plan of Treatment Not on file documented as of this encounter Visit Diagnoses Not on filedocumented in this encounter Additional Health Concerns Assessment Noted Time PHQ-9 Depression Total Score: 18 10/24/ 022 3:34 PM CASTING OPERATOR documented as of this encounter Care Teams Telecom Coordinator Relationship Specialty Start Date End Date Manish Aviles MD [address] [address] PCP - General INTERNAL MEDICINE 05/30/22 documented as of this encounter
== END 2025-01-07 12:12 | disposition home or self-care (01) ==
PROVIDERS: Emergency Provider Registered Nurse; PCP Internal Medicine
DX: J06.9 Acute upper respiratory infection, unspecified (principal); Z20.822 Contact with and (suspected) exposure to COVID-19; F17.290 Nicotine dependence, other tobacco product, uncomplicated
CPT/HCPCS: 87081; 87426; 87804; 87880; 99213; G0463

== ENCOUNTER 2025-01-23 12:52 | Outpatient (CLI) | payer OTHER, SELFPAY ==
--- NOTE | ~2025-01-23 | MM_ITS ---
EXAMINATION: MM diagnostic chema BI w sarah HISTORY: Palpable right breast mass. TECHNIQUE: Additional 3-D tomosynthesis images of the breasts were performed and synthetic 2-D images were generated. CAD analysis was submitted and interpreted. COMPARISON: None BREAST PARENCHYMAL COMPOSITION: Dense: The breasts are extremely dense, which lowers the sensitivity of mammography. FINDINGS: There are no suspicious masses, calcifications or architectural distortion in either breast to suggest malignancy. IMPRESSION: 1. No mammographic evidence for malignancy. Dense breast limits sensitivity for malignancy. 2. Recommend correlation with complete bilateral breast ultrasound attention to the area of palpable concern in the right breast. BI-RADS CATEGORY 0 - INCOMPLETE STUDY, NEED ADDITIONAL IMAGING EVALUATION. Reviewed, dictated and finalized at location B.
--- OUTSIDE RECORDS SUMMARY | 2025-01-23 13:15 | XMS_ITS | Clinical Summary ---
Author Organization [facility] Address [address] [place] [address] Phone Care Team Providers Care Work And Family Life Consultant Name Role Phone Manish Aviles MD Primary Care Provider Allergies No known active allergies Medications busPIRone [...] 2014 HPV/Cotest 2014 Influenza Immunization (#1) 07/07/202408/07, 11/13/2015, 12/06/2012, Additional history exists SARS-COV-2 Immunization ( season) 2024 10/22/2021, 10/14/2021, [...] Date Last Indicated ESBL 08/24/2022 08/24/2022 Insurance [facility] Care Teams Work And Family Life Consultant Relationship Specialty Start Date End Date Manish Aviles MD [address] [facility] [address] [place] [address] PCP - General Internal Medicine 06/05/22
--- OUTSIDE RECORDS SUMMARY | 2025-01-23 13:15 | XMS_ITS | Encounter Summary ---
Author Organization [facility] Address [facility] [place] [address] Care Team Providers Care Optical Coating Technician Name Role Phone Manish Aviles MD Primary Care Provider [phone] Encounter Details Date Type Department Care Team (Late st Contact Info) Description 02/27/2023 [employer] Virtualt Message Enc [facility] Multispecialty Care - [place] [address] [address] [place] [address] Manish Aviles MD [address] [place] [address] [address] [place], [place] [id number] Medical Social History Tobacco Use Types Packs/Day [...] Depression Total Score: 18 022 3:34 PM VOLUNTEER MANAGER documented as of this encounter Care Teams Optical Coating Technician Relationship Specialty Start Date End Date Manish Aviles MD [address] [facility] [address] [place] [address] PCP - General INTERNAL MEDICINE 05/30/22 documented as of this encounter
--- OUTSIDE RECORDS SUMMARY | 2025-01-23 13:15 | XMS_ITS | Encounter Summary ---
Author Organization [facility] Address [facility] [place] [address] Care Team Providers Care Pc Support Specialist Name Role Phone Manish Aviles MD Primary Care Provider [phone] Encounter Details Date Type Department Care Team (Late st Contact Info) Description 06/03/2022 7Summits Message Enc [facility] Medical Group Multispecialty Care - [address] [place] [address] [employer], [facility] Provider records release Social History Tobacco Use [...] documented as of this encounter Care Teams Pc Support Specialist Relationship Specialty Start Date End Date Manish Aviles MD [address] [address] PCP - General INTERNAL MEDICINE 05/30/22 documented as of this encounter
--- OUTSIDE RECORDS SUMMARY | 2025-01-23 13:15 | XMS_ITS | Clinical Summary ---
Author Organization [facility] Address [address] [place] [address] Care Team Providers Care Harness Preparer Name Role Phone Manish Aviles MD Primary Care Provider [phone] Allergies No known active allergies Medications omeprazole [...] te episode of recurrent major depressive disorder (CMS/HCC) Take 1 tablet (10 mg total) by [...] Noted Date Diagnosed Date Bipolar I disorder ([facility]) 08/26/2022 Encounters Date Type Department Care Team Description 01/07/2025 Scan [facility] Scanned, Doc Med Group Lab (SCAN) 01/07/2025 Scan [facility] SRVCS Scanned, Doc Med Group Lab (SCAN) 01/03/2025 Telephone [facility] [address] [place] [address] Manish Aviles MD Mammography Order; Information 01/01/2025 4:20 PM PREFLIGHT MECHANIC [facility] [address] [place] [address] Manish Aviles MD Follow Up (Acute - [...] (Havrix [address]) 10/16/2012 Hepatitis B Pediatric 01/06/2000,07/24/1999,08/0 04/1999 Influenza (Generic) 11/13/2015,12/06/2012 MMR (MMRII) 03/23/1993,05/14/1986 MODERNA COVID-19 (ENGAGEMENT MGR SHEBA GARRETT), MRNA, LNP-S, PF, 50 MCG/ [...] Comments Blood Pressure 131/71 01/01/2025 4:24 PM PREFLIGHT MECHANIC Pulse 55 01/01/2025 4:24 PM PREFLIGHT MECHANIC Temperature 36.4 C (97.6 F) 01/01/2025 4:24 PM PREFLIGHT MECHANIC Respiratory Rate 18 01/01/2025 4:24 PM PREFLIGHT MECHANIC Oxygen Saturation 100% 01/01/2025 4:24 PM PREFLIGHT MECHANIC Inhaled Oxygen Concentration - - Weight 64.8 kg (142 lb 12.8 oz) 01/01/2025 4:24 PM PREFLIGHT MECHANIC Height 168.9 cm (5' 6.5 ) 01/01/2025 4:24 PM PREFLIGHT MECHANIC Body Mass Index 22.7 01/01/2025 4:24 PM PREFLIGHT MECHANIC Plan of Treatment Health Maintenance Due Date Last Done Comments Cervical Cancer Screening Pap with HPV Testing (Age 30 to 64) Every 5 Years 2014 Annual Physical 05/30/2023 05/30/2022 COVID-19 Vaccine ( season) 2024 10/22/2021, 10/14/2021, 03/20/2021, Additional history exists PHQ-2 (Physician [place]) 11/06/2024 Mammogram Screening 2024 Cervical Cancer Screening Pap [...] Procedure Name Priority Date/Time Associated Diagnosis Comments OUTSIDE LAB (SCAN ORDER) 01/07/2025 OUTSIDE LAB COVID-19 (SCAN ORDER) Routine 01/07/2025 OUTSIDE LAB (SCAN ORDER) 01/07/2025 OUTSIDE LAB (SCAN ORDER) 01/07/2025 CYTOPATH CERV/VAG THIN LAYER Routine 10/24/2022 7:46 AM PREFLIGHT MECHANIC HEPATITIS C ANTIBODY Routine 05/30/2022 3:05 PM CDT Annual physical exam Encounter for medical examination to establish care General medical exam Encounter for hepatitis C screening test for low risk patient from Last 3 Months or Most Recently Relevant to Health Maintenance Results * OUTSIDE LAB COVID-19 (01/07/2025) CORONAVIRUS SARS COV 2 PCR (RESP) NOT DETECTED NOT DETECTED [facility] ONBASE 01/07/2025 [employer] [facility] Scanned SCANNING Final Resu lt [facility] ONBASE * OUTSIDE LAB (SCAN ORDER) (01/07/2025) Only the most recent of3 resultswithin the time period is included. 01/07/2025 [employer] [facility] Scanned SCANNING Final Resu lt * Cytopath Cerv/Vag Thin Layer (10/24/2022 7:46 AM PREFLIGHT MECHANIC) THIN PREP PAP [address] [address] Department of Pathology Pathology Report CERVICAL/VAGINAL PAP SMEAR REPORT Name: DORI ACEVEDO Age: 1 1985 (Age: 36) Location: [facility] Sex: F Collected Date: 10/24/2022 [facility] #: [id number] Date Received: 10/26/2022 Date Reported: 10/26/2022 Provider: [...] is not effective in detecting cervical adenocarcinoma. [facility] 10/24/2022 7:46 AM PREFLIGHT MECHANIC 10/26/2022 7:46 AM PREFLIGHT MECHANIC Comment:CERVICAL/ENDOCERVICA L Manish Aviles MD PATHOLOGY/CYTOLOGY ORDERABLES Fi nal Result Performing Organization Address City/[facility]/ZIP Co de Phone Number [facility] [address] [place] [address], [place] [phone] * HEPATITIS C ANTIBODY (05/30/2022 3:05 PM CDT) HEPATITIS C AB NON-REACTI VE NON-REACT JOJO 05/31/2022 8:07 PM CDT [facility] Comment: ANTIBODIES TO HCV NOT DETECTED. DOES NOT EXCLUDE THE POSSIBILITY OF EXPOSURE TO HCV. 05/30/2022 3:05 PM CDT Manish Aviles MD LABORATORY Final Result Performing Organization Address City/[facility] Co de Phone Number [facility] [address] [place] [address], [place] [phone] from Last 3 Months or Most Recently Relevant to Health Maintenance Care Teams Harness Preparer Relationship Specialty Start Date End Date Manish Aviles MD [address] [facility] [address] [place] [address] PCP - General INTERNAL MEDICINE 05/30/22
--- OUTSIDE RECORDS SUMMARY | 2025-01-23 13:15 | XMS_ITS | Encounter Summary ---
Author Organization [facility] Address [address] [place] [address] Phone Care Team Providers Care Critical Care Unit Nurse Name Role Phone Maxim Nelson Primary Care Provider [phone] Provider, None Primary Care Provider Manish Sullivan MD Primary Care Provider [phone] Encounter Details Date Type Department Care Team (Late st Contact Info) Description 10/06/2021 Lab Requisition [facility] [address] [place] [address] Eileen Loaiza, ACCOUNTS PAYABLE PROFESSIONAL, MICROSOFT ARCHITECT [address] [place] [address] Encounter for pre-employment examination Social History Tobacco [...] QUANTIFERON-TB GOLD PLUS Routine 10/06/2021 10:25 AM ARCHITECTURAL DRAFTER Encounter for pre-employment examination documented in this encounter Results * QUANTIFERON-TB GOLD PLUS (10/06/2021 10:25 AM ARCHITECTURAL DRAFTER) NIL CONTROL 0.03 <8.01 IU/mL 10/08/2021 2:11 PM [facility] TB ANTIGEN 1 0.01 <0.35 IU/mL 10/08/2021 2:11 PM [facility] TB ANTIGEN 2 0.01 <0.35 IU/mL 10/08/2021 2:11 PM [facility] MITOGEN CONTROL >10.00 >0.49 IU/mL 10/08/20 2:11 PM [facility] INTEPRETATION TB NEGATIVE NEGATIVE, NEGATIVE (TB antigen response less than 25% of internal negative control value) 10/08/2021 2:11 PM [facility] Comment:No immune response t o Mycobacterium tuberculosis antigens was noted. M. tuberculosis infection unlikely. Blood No Phlebotomy Charged / Unknown 10/06/2021 10:25 AM ARCHITECTURAL DRAFTER 10/07/2021 7:17 AM [facility] - 10/08/2021 2:11 PM ARCHITECTURAL DRAFTER A POSITIVE QUANTIFERON-TB GOLD PLUS RESULT SHOULD [...] APRN, CNP IMMUNOLOGY ORDERABLES F inal Result [facility] [address] [place] [address], documented in this encounter Visit Diagnoses Diagnosis Encounter for pre-employment examination Health examination of defined subpopulation documented in this encounter Additional Health Concerns Infection Onset Date Last Indicated Resolved Time ESBL 08/24/2022 08/24/2022 documented as of this encounter Care Teams Critical Care Unit Nurse Relationship Specialty Start Date End Date Maxim Nelson PAC [address] [place] [address] PCP - General Physician Food Assembler [employer] 01/12/16 01/27/22 Provider, None [place] PCP - General 01/28/22 06/04/22 Manish Aviles MD [address] [address] PCP - General Internal Medicine 06/05/22 documented as of this encounter
--- OUTSIDE RECORDS SUMMARY | 2025-01-23 13:15 | XMS_ITS | Encounter Summary ---
Author Organization [facility] Address [facility], [address] [place] [address] Care Team Providers Care Upholsterer Assembly Line Name Role Phone Manish Aviles MD Primary Care Provider [phone] Encounter Details Date Type Department Care Team (Late st Contact Info) Description 12/29/2022 Clipsource Message Enc [facility] Medical Group Multispecialty Care - [address] [place] [address] Jemma Iraheta NP Results Social History Tobacco [...] Coronavirus/COVID-19? No / Unsure 12/29/2022 12:47 PM NATURAL RESOURCES SPECIALIST documented as of this encounter Plan of Treatment Not on file documented as of this encounter Visit Diagnoses Not on filedocumented in this encounter Additional Health Concerns Assessment Noted Time PHQ-9 Depression Total Score: 18 022 3:34 PM NATURAL RESOURCES SPECIALIST documented as of this encounter Care Teams Upholsterer Assembly Line Relationship Specialty Start Date End Date Manish Aviles MD [address] [address] PCP - General INTERNAL MEDICINE 05/30/22 documented as of this encounter
--- OUTSIDE RECORDS SUMMARY | 2025-01-23 13:15 | XMS_ITS | Data Portability ---
[facility] [address] [place] [address] Care Team Providers Care Elevator Tender Name Role Phone NAZANIN NELSON Primary Care Provider Assessment No assessment recorded. Plan of Treatment Reminders Order Date Submit Date Provider Last Modified By Organization Details Last Modified Time Details Appointments None recorded. Lab unlisted lab - beta HCG, quantitati ve 2015 016 [facility], [address] [place] [address], [address], [place], [address], 6 06:22:30 Referral None recorded. Procedures None recorded. Surgeries None recorded. Imaging ultrasound , pelvic transabdom inal & transvagin al 2015 016 b[facility]oglio 1 [facility], [address] [place], [address], 6 12:13:54 Medication Orders hydroxyzin e pamoate 25 mg capsule 2019 020 INTERFACE [facility], [address] [place] [address], [address], 0 16:55:03 fluoxetine 40 mg capsule 2019 020 INTERFACE [facility], [address] [place] [address], [address], 0 16:54:58 hydroxyzin e pamoate 25 mg capsule 2019 020 INTERFACE [facility], [address] [place], [address], 0 12:38:45 Latuda 20 mg tablet 2019 020 INTERFACE [facility], [address] [place], [address], 0 12:38:41 Tubersol 5 tub. unit/0.1 mL intraderma l injection solution 2014 015 [email or web address] Not available 0 12:20:55 Patient TargetsNo targets recorded. Patient Instructions Encounter Date Encounter Id Patient Instructions Last Modified By Organization Details Last Modified Time 01/20/2016 [id number] abdominal pain: care instructions [email or web address] Not available 01/20/2016 11:27:17 01/27/2020 [id number] anxiety disorder : care instructions [email or web address] Not available 01/27/2020 12:38:31 upper respirator y infection (cold): care instructions [email or web address] Not available 01/27/2020 12:36:04 Reason for Referral None Reported. Results Created Date Observation Date Name Description Value Unit Range Abnormal Flag Note LastModifiedBy Organization Detail LastModifiedTime 10/06/20 15 10/07/2015 TSH + free T4, serum TSH 1.190 uIU/m L 0.450- 4.500 Not Available [facility] ([facility]) [address] [place], [address], 10/07/2015 08:56:39 10/06/20 15 10/07/2015 TSH + free T4, serum T4,free(dire ct) 1.32 NG/dL 0.82-1 .77 Not Available [facility] ([facility]) [address] [place], [address], 10/07/2015 08:56:39 01/20/20 16 01/22/2016 beta- HCG, quant itati ve, serum or plasm a beta HCG, quantitative <0.5 mIU/m L BECKM AN ICMA METHO DOLOG Y REFER ENCE RANGE : GESTA TION: BY WEEK RANGE 0-1W 5 - 50 2W 50 - 500 3W 100 - 55166 4W 1000 - 74363 5W 85034 - 69249 0 6 - 8W 66172 - 83908 0 9 - 12W 45169 - 48302 0 ALL AGES: 0.0 - 4.9 NON-P REGNA NT FEMAL ES: < 5 POSTM ENOPA USAL: < 9.5 Not Available [facility] [address] [facility], [place], [address], 01/23/2016 06:22:30 Result Notes None recorded. Problems Name Problem SNOMED Code Status Onset Date Resolution Date Notes Provider Name and Address Organization Details Recorded Time Bipolar I disorder 433226308 Active RACHEAL Nath, [place] - [facility] 6 11:05:01 Abdominal pain 07043767 Active Nazanin Nelson PA-C Attn: Callie escamilla,[address] [place], [address] , [place] - [facility] 6 11:23:02 Upper respiratory infection 58661678 Active RACHEAL Nath, [place] - [facility] 6 11:05:01 Problem Notes None recorded. Procedures Surgical History Date Name Laterality Status Provider Name and Address Organization Details Recorded Time Other completed Kaitlin bradley [place] 10/23/2014 19:36:55 Imaging Results None [...] Address Organization Details Last Updated DateTime 0 74131.0 8 g 98 % 98 % 97 /min 110 mm[Hg] 60 mm[Hg] Emma Platt [place] [facility] 0 12:25:01 Date Recorded Body temperature Provider Name a nd Address Organization Details Last Updated DateTime 01/27/2020 98.2 [degF] Nazanin Nelson PA-C Attn: Accounting,[address] [facility], [place], [address], [place] - [facility] 01/27/2020 12:32:16 Date Recorded Body height Body weight Body mass index (BMI) Systolic blood pressure Diastolic blood pressure Provider Name and Address Organization Details Last Updated DateTime 01/20/2016 167.64 cm 00964.90 2482 g 22.4 kg/m2 110 mm[Hg] 70 mm[Hg] Keisha Rosado MA [place] 6 11:08:18 Social History Question Answer Notes LastModified by Organizat ion Details LastModified Time Tobacco Smoking Status Current Every Day Smoker Kaitlin Faust MA null, [place] 10/23/2014 19:36:55 In The 14 Days Before Symptom Onset, Have You Had Close Contact With A Laboratory-confirm ed COVID-19 While That Case Was Ill? No Information n ot available 01/27/2020 If Patient Spent Time In [facility] - Does The Patient Live In [facility]? No Information not available 01/27/2020 In The 14 Days Before Symptom Onset, Have You Had Close Contact With A Person Who Is Under Investigation For COVID-19 While That Person Was Ill? No Information not available 01/27/2020 In The 14 Days Before Symptom Onset, Did The Patient Spend Time In [facility]? No Information not available 01/27/2020 Have You [...] virus, trivalent, preservative 6 completed Not Available [facility] 02:32:29 Past Encounters Encounter ID Performer Location Encounter Start Date Encounter Closed Date Diagnosis/Indication Diagnosis SNOMED-CT Code Diagnosis ICD10 Code Diagnosis Note [id number] [facility] [address] [place] [address] 10/23/2014 19:24:55 10/27/2014 12:33:05 Upper respiratory infection 45047894 [id number] Kaitlin Faust MA [facility] [address] [place] [address] 07/23/2015 14:30:41 07/23/2015 14:54:37 Upper respiratory infection 96890037 Bipolar I disorder 502498616 [id number] Nazanin Nelson PA-C [facility] [address] [place] [address] 10/06/2015 09:49:45 10/06/2015 11:02:11 Bipolar I disorder 658575242 F31.9 [id number] Nazanin Nelson PA-C [facility] [address] [place] [address] 10/20/2015 10:20:18 10/20/2015 11:03:15 Bipolar I disorder 120025749 F31.9 Upper resp iratory infection 32710387 J06.9 [id number] Nazanin Nelson PA-C [facility] [address] [place] [address] 10/21/2015 13:54:20 10/21/2015 15:08:20 Active or passive immunization 881817385 Z23 [id number] Nazanin Nelson PA-C [facility] [address] [place] [address] 11/13/2015 14:58:16 11/16/2015 09:26:54 Influenza vaccine needed 2736119452 106 Z23 [id number] Nazanin Nelson PA-C [facility] [address] [place] [address] 01/20/2016 10:55:18 01/20/2016 11:35:25 Abdominal pain 42550582 R10.9 [id number] Nazanin Nelson PA-C [facility] [address] [place] [address] 01/27/2020 12:03:29 01/27/2020 12:46:20 Upper respiratory infection 49883355 J00 Generalize d anxiety disorder 56486499 F41.1 Bipolar I disorder 40743 6008 F31.9 [id number] Nazanin Nelson PA-C [facility] [address] [place] [address] 07/09/2020 09:46:19 07/09/2020 17:17:36 Generalized anxiety disorder 46663297 F41.1 Bipolar I disorder 79937 6008 F31.9 Health Concerns Section Related Observation LastModified by Organization Detai ls LastModified Time None Recorded Concern Status LastModified by Organization Details LastModified Time None Recorded Advance Directives Directive None Recorded Payers Encounter Date Sequence Insurance Name Policy Number Policy An Covered Member ID An Member ID Guarantor Name 10/21/2015 1 [facility] PRIOR TO 05/06/2021 (MEDICAID REPLACEMENT - HMO) Dori Bruno [id number] Dori Bruno 11/13/2015 1 [facility] PRIOR TO 05/06/2021 (MEDICAID REPLACEMENT - HMO) Dori Bruno [id number] Dori Bruno 01/20/2016 1 [facility] PRIOR TO 05/06/2021 (MEDICAID REPLACEMENT - HMO) Dori Bruno [id number] Dori Bruno 07/09/2020 1 *SELF PAY* As charline Bruno Notes Date Note Type Note Provider Name and Address Organization Details Recorded Time 01/20/2016 text/html has abdominal pain and wt gain. reports that she has frequency was put on antibiotics. 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 Nazanin Nelson PA-C Attn: Accounting,[address] [facility], [place], [address], [facility] 07/09/2020 16:57:15 OBGyn Episode No OBEpisode recorded.
== END 2025-01-23 12:53 | disposition home or self-care (01) ==
LOC: ANHIMG 12:54
PROVIDERS: PCP Internal Medicine; Visit Provider Internal Medicine
DX: N63.21 Unspecified lump in the left breast, upper outer quadrant (principal)
CPT/HCPCS: 77062; 77066; G0279

== ENCOUNTER 2025-01-28 09:16 | Outpatient (CLI) | payer OTHER, SELFPAY ==
--- NOTE | ~2025-01-28 | US_ITS ---
EXAMINATION: US breast BI complete HISTORY: 39-year-old woman with a history of a palpable abnormality within the upper outer right jerardo st are presented for diagnostic evaluation on 01/23/2025, underwent bilateral diagnostic mammography ( yielding benign results) but was unable to undergo breast ultrasound at that time. Given the extreme density of patient's breasts, bilateral breast ultrasound was recommended as follow-up. High resolution limited bilateral breast ultrasound was performed. COMPARISON: Reference is made to bilateral mammography dated 01/23/2025 FINDINGS: ULTRASOUND: At the 7:00 position of the right breast approximately 2 cm from the nipple is a well-circumscribed a nechoic avascular focus with increased through transmission measuring 6.2 x 6.3 x 3.0 mm, consistent with a simple cyst for which no further follow-up is needed. At the 9:00 position of the right breast approximately 1 cm from the nipple is a well-circumscribed s haped focus measuring 9.7 x 9.7 x 4.3 mm, possibly an intramammary lymph node for which short-term fo llow-up is suggested. Given the location, this may correspond to patient's palpable abnormality. At the 2:00 position of the left breast approximately 1 cm from the nipple is a well-circumscribed an echoic avascular focus measuring 3.3 x 4.2 x 2.8 mm with increased through transmission consistent wi th a simple cyst for which no further follow-up is needed. At the 3:00 position of the left breast approximately 1 cm from the nipple is a well-circumscribed an echoic avascular structure with increased through transmission measuring 7.7 x 7.5 x 3.0 mm, consiste nt with a simple cyst for which no further follow-up is needed. Sonographic evaluation of the remainder of the bilateral breast demonstrates benign fibroglandular el ements without a cystic or solid lesion of concern. IMPRESSION: No sonographic evidence to suggest the presence of malignancy. Multiple simple cysts detected bilaterally for which no further follow-up is needed. Findings at the 9:00 position which may correspond to patient's palpable abnormality, possibly an int ramammary lymph node for which short-term sonographic follow-up is suggested. Recommend 6 month focus ultrasound follow-up at the 9:00 position of the right breast BI-RADS category 3, probably benign findings. Reviewed, dictated and finalized at location A. IMPRESSION: No sonographic evidence to suggest the presence of malignancy. Multiple simple cysts detected bilaterally for which no further follow-up is ne eded. Findings at the 9:00 position which may correspond to patient's palpable abnorm ality, possibly an intramammary lymph node for which short-term sonographic fol low-up is suggested. Recommend 6 month focus ultrasound follow-up at the 9:00 position of the right breast BI-RADS category 3, probably benign findings.
--- OUTSIDE RECORDS SUMMARY | 2025-01-28 10:12 | XMS_ITS | Encounter Summary ---
Author Organization [facility] Address [facility] [place] [address] Care Team Providers Care Senior Quality Methods Specialist Name Role Phone Manish Aviles MD Primary Care Provider [phone] Encounter Details Date Type Department Care Team (Late st Contact Info) Description 06/03/2022 vSocial Message Enc [facility] Medical Group Multispecialty Care - [address] [place] [address] Adan, [facility] Provider records release Social History Tobacco Use [...] documented as of this encounter Care Teams Senior Quality Methods Specialist Relationship Specialty Start Date End Date Manish Aviles MD [address] [address] PCP - General INTERNAL MEDICINE 05/30/22 documented as of this encounter
--- OUTSIDE RECORDS SUMMARY | 2025-01-28 10:13 | XMS_ITS | Clinical Summary ---
Author Organization [facility] Address [address] [place] [address] Care Team Providers Care Stove Fitter Name Role Phone Manish Aviles MD Primary Care Provider [phone] Allergies No known active allergies Medications omeprazole [...] mouth 3 (three) times daily. 9 tablet Active Additional Information Patient not taking.Reported on 01/01/2025 doxepin (SINEQUAN) 10 MG capsuleIndicatio ns:Herpes zoster without complication Take 1 capsule (10 mg total) by mouth nightly at bedtime. Okay to refill thanks. 20 capsule Active Additional Information Patient not taking.Reported on 01/01/2025 Active Problems Problem Noted Date Diagnosed Date Bipolar I disorder ([facility]) 08/26/2022 Encounters Date Type Department Care Team Description 01/24/2025 Scan [facility] Scanned, Doc Med Group 01/24/2025 Orders Only [place] [address] [place] [address] Noy Infante CLEAN ROOM OPERATOR 01/23/[address] [place] [address] [address] [place] [address] Manish Aviles MD Orders 01/07/2025 Scan [facility] HE[facility] INFO SRVCS Scanned, Doc Med Group Lab (SCAN) 01/07/2025 Scan [facility] INFO SRVCS Scanned, Doc Med Group Lab (SCAN) 01/03/2025 Telephone [place] [address] [address] Manish Aviles MD Mammography Order; Information 01/01/2025 4:20 PM SWITCHBOARD RECEPTIONIST Office Visit [place] [address] [address] [place] [address] [address] [place] [address] Manish Aviles MD Follow Up (Acute - [...] (Generic) 11/13/2015,12/06/2012 MMR (MMRII) 03/23/1993,05/14/1986 MODERNA COVID-19 (IN [employer] MEMBER SHEBA GARRETT), MRNA, LNP-S, PF, 50 MCG/ [...] Comments Blood Pressure 131/71 01/01/2025 4:24 PM SWITCHBOARD RECEPTIONIST Pulse 55 01/01/2025 4:24 PM SWITCHBOARD RECEPTIONIST Temperature 36.4 C (97.6 F) 01/01/2025 4:24 PM SWITCHBOARD RECEPTIONIST Respiratory Rate 18 01/01/2025 4:24 PM SWITCHBOARD RECEPTIONIST Oxygen Saturation 100% 01/01/2025 4:24 PM SWITCHBOARD RECEPTIONIST Inhaled Oxygen Concentration - - Weight 64.8 kg (142 lb 12.8 oz) 01/01/2025 4:24 PM SWITCHBOARD RECEPTIONIST Height 168.9 cm (5' 6.5 ) 01/01/2025 4:24 PM SWITCHBOARD RECEPTIONIST Body Mass Index 22.7 01/01/2025 4:24 PM SWITCHBOARD RECEPTIONIST Plan of Treatment Health Maintenance Due Date Last Done Comments Cervical Cancer Screening Pap with HPV Testing (Age 30 to 64) Every 5 Years 2014 Annual Physical 05/30/2023 05/30/2022 COVID-19 Vaccine ( season) 2024 10/22/2021, 10/14/2021, 03/20/2021, Additional history exists PHQ-2 (Physician [place]) 11/06/2024 Mammogram Screening 2024 Cervical Cancer Screening Pap Smear (Age 30 to 64) Every 3 Years 10/24/2025 10/24/2022 Cervical Cancer Screening with HPV 10/24/2025 DTaP, Tdap and Td Vaccines (7 - Td or Tdap) 01/11/2026 01/12/2016, 06/11/1999, 04/14/1989, Additional history exists Hepatitis B Vaccines Completed 01/06/2000, 07/24/1999, 06/11/1999 Hepatitis C Completed 05/30/2022 Influenza Adult Completed 01/01/2025, 08/07, 11/13/2015, Additional history exists HPV Vaccines Aged [...] CERV/VAG THIN LAYER Routine 10/24/2022 7:46 AM SWITCHBOARD RECEPTIONIST HEPATITIS C ANTIBODY Routine 05/30/2022 3:05 PM CDT Annual physical exam Encounter for medical examination to establish care General medical exam Encounter for hepatitis C screening test for low risk patient from Last 3 Months or Most Recently Relevant to Health Maintenance Results * OUTSIDE LAB COVID-19 (01/07/2025) CORONAVIRUS SARS COV 2 PCR (RESP) NOT DETECTED NOT DETECTED [facility] 01/07/2025 Result [facility] Scanned SCANNING Final Resu lt [facility] * OUTSIDE LAB (SCAN ORDER) (01/07/2025) Only the most recent of3 resultswithin the time period is included. 01/07/2025 Result [facility] Scanned SCANNING Final Resu lt * Cytopath Cerv/Vag Thin Layer (10/24/2022 7:46 AM SWITCHBOARD RECEPTIONIST) THIN PREP PAP [address] [address] Department of Pathology Pathology Report CERVICAL/VAGINAL PAP SMEAR REPORT Name: DORI ACEVEDO Age: 1 1985 (Age: 36) Location: [facility] Sex: F Collected Date: 10/24/2022 Hospital #: [id number] Date Received: 10/26/2022 Date Reported: 10/26/2022 Provider: [...] is not effective in detecting cervical adenocarcinoma. [facility] 10/24/2022 7:46 AM SWITCHBOARD RECEPTIONIST 10/26/2022 7:46 AM SWITCHBOARD RECEPTIONIST Comment:CERVICAL/ENDOCERVICA L us Manish Aviles MD PATHOLOGY/CYTOLOGY ORDERABLES Fi nal Result Performing Organization Address City/[facility] Co de Phone Number [facility] [address] [place] [address], [place] [phone] * HEPATITIS C ANTIBODY (05/30/2022 3:05 PM CDT) HEPATITIS C AB NON-REACTI VE NON-REACT JOJO 05/31/2022 8:07 PM CDT [facility] Comment: ANTIBODIES TO HCV NOT DETECTED. DOES NOT EXCLUDE THE POSSIBILITY OF EXPOSURE TO HCV. 05/30/2022 3:05 PM CDT us Mainsh Aviels MD LABORATORY Final Result Performing Organization Address City/[facility] Co de Phone Number [facility] [address] [place] [address], [place] [phone] from Last 3 Months or Most Recently Relevant to Health Maintenance Care Teams Stove Fitter Relationship Specialty Start Date End Date Manish Aviles MD [address] [facility] [address] [place] [address] PCP - General INTERNAL MEDICINE 05/30/22
--- OUTSIDE RECORDS SUMMARY | 2025-01-28 10:13 | XMS_ITS | Encounter Summary ---
Author Organization [facility] Address [facility] [place] [address] Care Team Providers Care Mail Carrier Technician Name Role Phone Manish Aviles MD Primary Care Provider Encounter Details Date Type Department Care Team (Late st Contact Info) Description 02/27/2023 [employer] Message Enc [facility] Medical Group Multispecialty Care - [place] [address] [address] [place] [address] Manish Aviles MD [address] [place] [address] [address] [place], [place] [id number] Medical Social History Tobacco Use Types Packs/Day [...] Depression Total Score: 18 022 3:34 PM FLOORWORKER LASTING documented as of this encounter Care Teams Mail Carrier Technician Relationship Specialty Start Date End Date Manish Aviles MD [address] [facility] [address] [place] [address] PCP - General INTERNAL MEDICINE 05/30/22 documented as of this encounter
--- OUTSIDE RECORDS SUMMARY | 2025-01-28 10:13 | XMS_ITS | Clinical Summary ---
Author Organization [facility] Address [address] [place] [address] Phone Care Team Providers Care Seam Closer Name Role Phone Manish Aviles MD Primary Care Provider [phone] Allergies No known active allergies Medications busPIRone [...] Date Last Indicated ESBL 08/24/2022 08/24/2022 Insurance [facility] Care Teams Seam Closer Relationship Specialty Start Date End Date Manish Aviles MD [address] [facility] [address] [place] [address] PCP - General Internal Medicine 06/05/22
--- OUTSIDE RECORDS SUMMARY | 2025-01-28 10:13 | XMS_ITS | Encounter Summary ---
Author Organization [facility] Address [address] [place] [address] Care Team Providers Care Furniture Technician Name Role Phone Manish Aviles MD Primary Care Provider [phone] Encounter Details Date Type Department Care Team (Latest Contact Info) Description 01/24/2025 Scan HEALTH INFO SRVCS Scanned, Doc Med Group Social History Tobacco Use Types Packs/Day Years [...] Depression Total Score: 18 022 3:34 PM FIBERGLASS ROVING WINDER documented as of this encounter Care Teams Furniture Technician Relationship Specialty Start Date End Date Manish Aviles MD [address] [address] PCP - General INTERNAL MEDICINE 05/30/22 documented as of this encounter
--- OUTSIDE RECORDS SUMMARY | 2025-01-28 10:13 | XMS_ITS | Data Portability ---
Author Organization [facility] Address [address] [place] [address] Care Team Providers Care Home Performance Laborer Name Role Phone NAZANIN NELSON Primary Care Provider Assessment No assessment recorded. Plan of Treatment Reminders Order Date Submit Date Provider Last Modified By Organization Details Last Modified Time Details Appointments None recorded. Lab unlisted lab - beta HCG, quantitati ve 2015 016 [facility], [address] [place] [address], [address], [place], [address], 6 06:22:30 Referral None recorded. Procedures None recorded. Surgeries None recorded. Imaging ultrasound , pelvic transabdom inal & transvagin al 2015 016 bbertoglio 1 [facility], [address] [place], [address], 6 12:13:54 Medication Orders hydroxyzin e pamoate 25 mg capsule 2019 020 INTERFACE [facility], [address] [place] [address], [address], 0 16:55:03 fluoxetine 40 mg capsule 2019 020 INTERFACE [facility] [address], [address] [place] [address], [address], 0 16:54:58 hydroxyzin e pamoate 25 mg capsule 2019 020 INTERFACE [facility]71, [address] [place], [address], 0 12:38:45 Latuda 20 mg tablet 2019 020 INTERFACE [facility]71, [address] [place], [address], 0 12:38:41 Tubersol 5 tub. unit/0.1 mL intraderma l injection solution 2014 015 [email or web address] Not available 0 12:20:55 Patient TargetsNo targets recorded. Patient Instructions Encounter Date Encounter Id Patient Instructions Last Modified By Organization Details Last Modified Time 01/20/2016 [id number] abdominal pain: care instructions [email or web address] Not available 01/20/2016 11:27:17 01/27/2020 [id number] anxiety disorder : care instructions [email or web address] Not available 01/27/2020 12:38:31 upper respirator y infection (cold): care instructions [email or web address] Not available 01/27/2020 12:36:04 Reason for Referral None Reported. Results Created Date Observation Date Name Description Value Unit Range Abnormal Flag Note LastModifiedBy Organization Detail LastModifiedTime 10/06/20 15 10/07/2015 TSH + free T4, serum TSH 1.190 uIU/m L 0.450- 4.500 Not Available [facility] ([facility]) [address] [place], [address], 10/07/2015 08:56:39 10/06/20 15 10/07/2015 TSH + free T4, serum T4,free(dire ct) 1.32 NG/dL 0.82-1 .77 Not Available [facility] ([facility]) [address] [place], [address], 10/07/2015 08:56:39 01/20/20 16 01/22/2016 beta- HCG, quant itati ve, serum or plasm a beta HCG, quantitative <0.5 mIU/m L BECKM AN ICMA METHO DOLOG Y REFER ENCE RANGE : GESTA TION: BY WEEK RANGE 0-1W 5 - 50 2W 50 - 500 3W 100 - 65617 4W 1000 - 43392 5W 26284 - 43286 0 6 - 8W 41969 - 68498 0 9 - 12W 39111 - 88322 0 ALL AGES: 0.0 - 4.9 NON-P REGNA NT FEMAL ES: < 5 POSTM ENOPA USAL: < 9.5 Not Available [facility] [address] [facility], [place], [address], 01/23/2016 06:22:30 Result Notes None recorded. Problems Name Problem SNOMED Code Status Onset Date Resolution Date Notes Provider Name and Address Organization Details Recorded Time Bipolar I disorder 609933306 Active RACHEAL Nath, [place] - [facility] 6 11:05:01 Abdominal pain 34615299 Active Nazanin Nelson PA-C Attn: Callie escamilla,[address] [place], [address] , [place] - [place] 6 11:23:02 Upper respiratory infection 91708123 Active RACHEAL Nath, [place] - [place] 6 11:05:01 Problem Notes None recorded. Procedures Surgical History Date Name Laterality Status Provider Name and Address Organization Details Recorded Time Other completed Kaitlin bradley [place] 10/23/2014 19:36:55 Imaging Results None [...] Address Organization Details Last Updated DateTime 0 13501.0 8 g 98 % 98 % 97 /min 110 mm[Hg] 60 mm[Hg] Emma Platt [place] [facility] 0 12:25:01 Date Recorded Body temperature Provider Name a nd Address Organization Details Last Updated DateTime 01/27/2020 98.2 [degF] Nazanin Nelson PA-C Attn: Accounting,[address] [facility], [place], [address], [place] - [facility] 01/27/2020 12:32:16 Date Recorded Body height Body weight Body mass index (BMI) Systolic blood pressure Diastolic blood pressure Provider Name and Address Organization Details Last Updated DateTime 01/20/2016 167.64 cm 23332.90 2482 g 22.4 kg/m2 110 mm[Hg] 70 mm[Hg] Keisha Rosado [place] 6 11:08:18 Social History Question Answer Notes LastModified by Organizat ion Details LastModified Time Tobacco Smoking Status Current Every Day Smoker Kaitlin Faust MA null, [place] 10/23/2014 19:36:55 In The 14 Days Before Symptom Onset, Have You Had Close Contact With A Laboratory-confirm ed COVID-19 While That Case Was Ill? No Information n ot available 01/27/2020 If Patient Spent Time In [facility] - Does The Patient Live In [facility]? No Information not available 01/27/2020 In The [...] virus, trivalent, preservative 6 completed Not Available [facility] 02:32:29 Past Encounters Encounter ID Performer Location Encounter Start Date Encounter Closed Date Diagnosis/Indication Diagnosis SNOMED-CT Code Diagnosis ICD10 Code Diagnosis Note [id number] [facility] [address] [place] [address] 10/23/2014 19:24:55 10/27/2014 12:33:05 Upper respiratory infection 30807529 [id number] Kaitlin Faust MA [facility] [address] [place] [address] 07/23/2015 14:30:41 07/23/2015 14:54:37 Upper respiratory infection 03033606 Bipolar I disorder 322270072 [id number] Nazanin Nelson PA-C [facility] [address] [place] [address] 10/06/2015 09:49:45 10/06/2015 11:02:11 Bipolar I disorder 400192593 F31.9 [id number] Nazanin Nelson PA-C [facility] [address] [place] [address] 10/20/2015 10:20:18 10/20/2015 11:03:15 Bipolar I disorder 622652002 F31.9 Upper resp iratory infection 83392016 J06.9 [id number] Nazanin Nelson PA-C [facility] [address] [place] [address] 10/21/2015 13:54:20 10/21/2015 15:08:20 Active or passive immunization 015126012 Z23 [id number] Nazanin Nelson PA-C [facility] [address] [place] [address] 11/13/2015 14:58:16 11/16/2015 09:26:54 Influenza vaccine needed 7938474665 106 Z23 [id number] Nazanin Nelson PA-C [facility] [address] [place] [address] 01/20/2016 10:55:18 01/20/2016 11:35:25 Abdominal pain 88922035 R10.9 [id number] Nazanin Nelson PA-C [facility] [address] [place] [address] 01/27/2020 12:03:29 01/27/2020 12:46:20 Upper respiratory infection 13287436 J00 Generalize d anxiety disorder 52761317 F41.1 Bipolar I disorder 70501 6008 F31.9 [id number] Nazanin Nelson PA-C [facility] [address] [place] [address] 07/09/2020 09:46:19 07/09/2020 17:17:36 Generalized anxiety disorder 93348065 F41.1 Bipolar I disorder [address]5040 6008 F31.9 Health Concerns Section Related Observation LastModified by Organization Detai ls LastModified Time None Recorded Concern Status LastModified by Organization Details LastModified Time None Recorded Advance Directives Directive None Recorded Payers Encounter Date Sequence Insurance Name Policy Number Policy An Covered Member ID An Member ID Guarantor Name 10/21/2015 1 [facility] PRIOR TO 05/06/2021 (MEDICAID REPLACEMENT - HMO) Dori Bruno [id number] Dori Bruno 11/13/2015 1 [facility] PRIOR TO 05/06/2021 (MEDICAID REPLACEMENT - HMO) Dori Bruno [id number] Dori Bruno 01/20/2016 1 [facility] PRIOR TO 05/06/2021 (MEDICAID REPLACEMENT - HMO) Dori Bruno [id number] Dori Bruno 07/09/2020 1 *SELF PAY* As charline Bruno Notes Date Note Type Note Provider Name and Address Organization Details Recorded Time 01/20/2016 text/html has abdominal pain and wt gain. reports that she has frequency was put on antibiotics. 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, [place], [address], [facility] 01/27/2020 12:41:22 07/09/2020 text/html needs a doctors note to go back to work... Nazanin Nelson PA-C Attn: Accounting,[address] [facility], [place], [address], [facility] 07/09/2020 16:57:15 OBGyn Episode No OBEpisode recorded.
--- OUTSIDE RECORDS SUMMARY | 2025-01-28 10:13 | XMS_ITS | Encounter Summary ---
Author Organization [facility] Address [facility] [place] [address] Care Team Providers Care Artist Color Separation Name Role Phone Manish Aviles MD Primary Care Provider [phone] Encounter Details Date Type Department Care Team (Late st Contact Info) Description 12/29/2022 [employer] Message Enc [facility] Medical Group Multispecialty Care - [address] [place] [address] Jemma Iraheta NP Results Social History Tobacco [...] Coronavirus/COVID-19? No / Unsure 12/29/2022 12:47 PM SHEET ROCK TAPER documented as of this encounter Plan of Treatment Not on file documented as of this encounter Visit Diagnoses Not on filedocumented in this encounter Additional Health Concerns Assessment Noted Time PHQ-9 Depression Total Score: 18 022 3:34 PM SHEET ROCK TAPER documented as of this encounter Care Teams Artist Color Separation Relationship Specialty Start Date End Date Manish Aviles MD [address] [address] PCP - General INTERNAL MEDICINE 05/30/22 documented as of this encounter
--- OUTSIDE RECORDS SUMMARY | 2025-01-28 10:13 | XMS_ITS | Encounter Summary ---
Author Organization [facility] Address [address] [place] [address] Phone Care Team Providers Care Accounting Administrative Assistant Name Role Phone Maxim Nelson Primary Care Provider [phone] Provider, None Primary Care Provider Manish Sullivan MD Primary Care Provider [phone] Encounter Details Date Type Department Care Team (Late st Contact Info) Description 10/06/2021 Lab Requisition [facility] [address] [place] [address] Eileen Loaiza, DB2 DBA, CONSTRUCTION MANAGER [address] [place] [address] Encounter for pre-employment examination Social History Tobacco [...] QUANTIFERON-TB GOLD PLUS Routine 10/06/2021 10:25 AM MANUFACTURING MANAGER Encounter for pre-employment examination documented in this encounter Results * QUANTIFERON-TB GOLD PLUS (10/06/2021 10:25 AM MANUFACTURING MANAGER) NIL CONTROL 0.03 <8.01 IU/mL 10/08/2021 2:[address] [facility] TB ANTIGEN 1 0.01 <0.35 IU/mL 10/08/2021 2:[address] [facility] TB ANTIGEN 2 0.01 <0.35 IU/mL 10/08/2021 2:[address] [facility] MITOGEN CONTROL >10.00 >0.49 IU/mL 10/08/20 2:[address] [facility] INTEPRETATION TB NEGATIVE NEGATIVE, NEGATIVE (TB antigen response less than 25% of internal negative control value) 10/08/2021 2:[address] [facility] Comment:No immune response t o Mycobacterium tuberculosis antigens was noted. M. tuberculosis infection unlikely. Blood No Phlebotomy Charged / Unknown 10/06/2021 10:25 AM MANUFACTURING MANAGER 10/07/2021 7:17 AM [facility] - 10/08/2021 2:11 PM MANUFACTURING MANAGER A POSITIVE QUANTIFERON-TB GOLD PLUS RESULT SHOULD [...] APRN, CNP IMMUNOLOGY ORDERABLES F inal Result [facility] [address] [place] [address], documented in this encounter Visit Diagnoses Diagnosis Encounter for pre-employment examination Health examination of defined subpopulation documented in this encounter Additional Health Concerns Infection Onset Date Last Indicated Resolved Time ESBL 08/24/2022 08/24/2022 documented as of this encounter Care Teams Accounting Administrative Assistant Relationship Specialty Start Date End Date Maxim Nelson PAC [address] [place] [address] PCP - General Physician Marine Extension Agent 01/12/16 01/27/22 Provider, None [place] PCP - General 01/28/22 06/04/22 Manish Aviles MD [address] [address] PCP - General Internal Medicine 06/05/22 documented as of this encounter
== END 2025-01-28 09:17 | disposition home or self-care (01) ==
LOC: ANHIMG 09:17
PROVIDERS: PCP Internal Medicine; Visit Provider Nurse Practitioner
DX: R92.8 Other abnormal and inconclusive findings on diagnostic imaging of breast (principal)
CPT/HCPCS: 76641

== ENCOUNTER 2025-08-01 10:55 | Outpatient (CLI) | payer OTHER, SELFPAY ==
--- NOTE | ~2025-08-01 | US_ITS ---
EXAMINATION: US breast RT limited INDICATION: 39-year old female; BI-RADS 3, evaluate probably benign right breast mass. No new breast related symptoms. COMPARISON: 01/28/2025 TECHNIQUE: Targeted sonographic evaluation of the probably benign masses in the outer right breast was completed. FINDINGS: A 1 x 1.2 x 0.5 cm Hypoechoic circumscribed mass with fatty hilum at 9:00 location 1 cm from the nipple in the RIGHT breast reidentified is unchanged. IMPRESSION: Probably benign right breast masses have not significantly changed. RECOMMENDATION: Continue imaging surveillance with bilateral diagnostic mammography and right breast ultrasound in 6 months. BI-RADS 3, PROBABLY BENIGN Reviewed, dictated and finalized at location B. IMPRESSION: Probably benign right breast masses have not significantly changed. RECOMMENDATION: Continue imaging surveillance with bilateral diagnostic mammography and right b reast ultrasound in 6 months. BI-RADS 3, PROBABLY BENIGN
--- OUTSIDE RECORDS SUMMARY | 2025-08-01 11:01 | XMS_ITS | Encounter Summary ---
Author Organization [facility] Address [facility] [place] [address] Care Team Providers Care Athletic Turf Worker Name Role Phone Manish Aviles MD Primary Care Provider [phone] Encounter Details Date Type Department Care Team (Late st Contact Info) Description 06/03/2022 [employer] (P) Limited Message Enc [facility] Medical Group Multispecialty Care - [address] [place] [address] [employer], [facility] Provider records release Social History Tobacco Use [...] documented as of this encounter Care Teams Athletic Turf Worker Relationship Specialty Start Date End Date Manish Aviles MD [address] [address] PCP - General INTERNAL MEDICINE 05/30/22 documented as of this encounter
--- OUTSIDE RECORDS SUMMARY | 2025-08-01 11:01 | XMS_ITS | Clinical Summary ---
Author Organization [facility] Address [address] [place] [address] Care Team Providers Care Logistics And Planning Manager Name Role Phone Manish Aviles MD Primary Care Provider [phone] Allergies No known active allergies Medications omeprazole [...] Noted Date Diagnosed Date Bipolar I disorder ([facility]) 08/26/2022 Immunizations Immunization Administration Dates Next Due Dtp (Generic) 04/14/1989, 7,05/02/1986,1985,09/19/1985 Fluzone (IIV3, Trivalent, 0. 5 ML Prefilled Syringe) 01/01/2025 Fluzone 6 Months+ Quad (0.5 mL Prefilled Syringe) 08/26/2022 Hepatitis A (Havrix [address]) 10/16/2012 Hepatitis B Pediatric 01/06/2000,07/24/1999,04/1999 Influenza (Generic) 11/13/2015,12/06/2012 MMR (MMRII) 03/23/1993,05/14/1986 MODERNA COVID-19 (CUSHION MAT MAKER SHEBA GARRETT), MRNA, LNP-S, PF, 50 MCG/ 0.25 ML DOSE 10/22/2021,10/14/2021 Polio Opv (Generic) 04/10/1989, 7,05/02/1986,1985,09/19/1985 Td (TDVAX) 06/11/1999 Tdap (Generic) 01/12/2016 Family [...] Comments Blood Pressure 131/71 01/01/2025 4:24 PM AREA OPERATIONS DIRECTOR Pulse 55 01/01/2025 4:24 PM AREA OPERATIONS DIRECTOR Temperature 36.4 C (97.6 F) 01/01/2025 4:24 PM AREA OPERATIONS DIRECTOR Respiratory Rate 18 01/01/2025 4:24 PM AREA OPERATIONS DIRECTOR Oxygen Saturation 100% 01/01/2025 4:24 PM AREA OPERATIONS DIRECTOR Inhaled Oxygen Concentration - - Weight 64.8 kg (142 lb 12.8 oz) 01/01/2025 4:24 PM AREA OPERATIONS DIRECTOR Height 168.9 cm (5' 6.5) 01/01/2025 4:24 PM AREA OPERATIONS DIRECTOR Body Mass Index 22.7 01/01/2025 4:24 PM AREA OPERATIONS DIRECTOR Plan of Treatment Health Maintenance Due Date Last Done Comments HPV Vaccines (1 - 3-dose SCDM series) 2011 Cervical Cancer Screening Pap with HPV Testing (Age 30 to 64) Every 5 Years 2014 Annual Physical 05/30/2023 05/30/2022 PHQ-2 (Physician [place]) 11/06/2024 COVID-19 Vaccine ( season) 2025 10/22/2021, 10/14/2021, 03/20/2021, Additional history exists Cervical Cancer Screening Pap Smear (Age 30 to 64) Every 3 Years 10/24/2025 10/24/2022 Cervical Cancer Screening with HPV 10/24/2025 DTaP, Tdap and Td Vaccines (7 - Td or Tdap) 01/11/2026 01/12/2016, 06/11/1999, 04/14/1989, Additional history exists Mammogram Screening 01/23/2027 01/23/2025, Hepatitis B Vaccines Completed 01/06/2000, 07/24/1999, 06/11/1999 Hepatitis C Completed 05/30/2022 Meningococcal B Vaccine Aged Out No l onger eligible based on patient's age to complete this topic Meningococcal Vaccine Aged Out No dejuan jorge eligible based on patient's age to complete this topic Pneumococcal Vaccine: Pediatrics (0 to 5 Years) and At-Risk Patients (6 to 49 Years) Aged Out No longer eligible based on patient's age to complete this topic RSV Immunizations Under 20 Months Aged Out No longer eligible based on patient's age to complete this topic Procedures Procedure Name Priority Date/Time Associated Diagnosis Comments MAMMOGRAM GENERIC (SCAN ORDER) 01/23/2025 CYTOPATH CERV/VAG THIN LAYER Routine 10/24/2022 7:46 AM AREA OPERATIONS DIRECTOR HEPATITIS C ANTIBODY Routine 05/30/2022 3:05 PM CDT Annual physical exam Encounter for medical examination to establish care General medical exam Encounter for hepatitis C screening test for low risk patient from Last 3 Months or Most Recently Relevant to Health Maintenance Results * MAMMOGRAM GENERIC (SCAN ORDER) (01/23/2025) Anatomical Region Laterality Modality Other 01/23/2025 [facility] Scanned SCANNING Final Resu lt * Cytopath Cerv/Vag Thin Layer (10/24/2022 7:46 AM AREA OPERATIONS DIRECTOR) THIN PREP PAP [address] [address] Department of Pathology Pathology Report CERVICAL/VAGINAL PAP SMEAR REPORT Name: DORI ACEVEDO Age: 1 1985 (Age: 36) Location: [facility] Sex: F Collected Date: 10/24/2022 Hospital #: [id number] Date Received: 10/26/2022 Date Reported: 10/26/2022 Provider: [...] is not effective in detecting cervical adenocarcinoma. [facility] 10/24/2022 7:46 AM AREA OPERATIONS DIRECTOR 10/26/2022 7:46 AM AREA OPERATIONS DIRECTOR Comment:CERVICAL/ENDOCERVICA L Manish Aviles MD PATHOLOGY/CYTOLOGY ORDERABLES Fi nal Result Performing Organization Address City/[facility]/ZIP Co de Phone Number [facility] [address] [place] [address], [place] [phone] * HEPATITIS C ANTIBODY (05/30/2022 3:05 PM CDT) HEPATITIS C AB NON-REACTI VE NON-REACT JOJO 05/31/2022 8:07 PM CDT [facility] Comment: ANTIBODIES TO HCV NOT DETECTED. DOES NOT EXCLUDE THE POSSIBILITY OF EXPOSURE TO HCV. 05/30/2022 3:05 PM CDT Manish Aviles MD LABORATORY Final Result Performing Organization Address City/[facility] Co de Phone Number [facility] [address] [place] [address], [place] [phone] from Last 3 Months or Most Recently Relevant to Health Maintenance Insurance [employer] Care Teams Logistics And Planning Manager Relationship Specialty Start Date End Date Manish Aviles MD [address] [id number] PCP - General INTERNAL MEDICINE 05/30/22
--- OUTSIDE RECORDS SUMMARY | 2025-08-01 11:01 | XMS_ITS | Encounter Summary ---
Author Organization [facility] Address [address] [place] [address] Phone Care Team Providers Care Supervisor Central Supply Name Role Phone Maxim Nelson Primary Care Provider [phone] Provider, None Primary Care Provider Manish Sullivan MD Primary Care Provider [phone] Encounter Details Date Type Department Care Team (Late st Contact Info) Description 10/06/2021 Lab Requisition [facility] [address] [place] [address] Eileen Loaiza, RATING OFFICER, GAS METER READER [address] [place] [address] Encounter for pre-employment examination Social History Tobacco [...] QUANTIFERON-TB GOLD PLUS Routine 10/06/2021 10:25 AM ENGINE DESIGNER Encounter for pre-employment examination documented in this encounter Results * QUANTIFERON-TB GOLD PLUS (10/06/2021 10:25 AM ENGINE DESIGNER) NIL CONTROL 0.03 <8.01 IU/mL 10/08/2021 2:11 PM [facility] TB ANTIGEN 1 0.01 <0.35 IU/mL 10/08/2021 2:11 PM [facility] TB ANTIGEN 2 0.01 <0.35 IU/mL 10/08/2021 2:11 PM [facility] MITOGEN CONTROL >10.00 >0.49 IU/mL 10/08/20 21 2:11 PM [facility] INTEPRETATION TB NEGATIVE NEGATIVE, NEGATIVE (TB antigen response less than 25% of internal negative control value) 10/08/2021 2:11 PM [facility] Comment:No immune response t o Mycobacterium tuberculosis antigens was noted. M. tuberculosis infection unlikely. Blood No Phlebotomy Charged / Unknown 10/06/2021 10:25 AM ENGINE DESIGNER 10/07/2021 7:17 AM ENGINE DESIGNER Narrative [facility] - 10/08/2021 2:11 PM ENGINE DESIGNER A POSITIVE QUANTIFERON-TB GOLD PLUS RESULT SHOULD [...] APRN, CNP IMMUNOLOGY ORDERABLES F inal Result [facility] [address] [place] [address], documented in this encounter Visit Diagnoses Diagnosis Encounter for pre-employment examination Health examination of defined subpopulation documented in this encounter Additional Health Concerns Infection Onset Date Last Indicated Resolved Time ESBL 08/24/2022 08/24/2022 documented as of this encounter Care Teams Supervisor Central Supply Relationship Specialty Start Date End Date Maxim Nelson PAC [address] [place] [id number] PCP - General Physician Housekeeper Nanny 01/12/16 01/27/22 Provider, None [place] PCP - General 01/28/22 06/04/22 Manish Aviles MD [address] [address] PCP - General Internal Medicine 06/05/22 documented as of this encounter
--- OUTSIDE RECORDS SUMMARY | 2025-08-01 11:01 | XMS_ITS | Clinical Summary ---
Author Organization [facility] Address [address] [place] [address] Phone Care Team Providers Care Dump Truck Operator Name Role Phone Manish Aviles MD Primary Care Provider [phone] Allergies No known active allergies Medications busPIRone [...] for up to 1 week 30 g Active Immunizations Immunization Administration Dates Next Due [...] 6:26 PM CDT Height 167.6 cm (5' 6) 02/24/2023 6:26 PM CDT Body Mass Index 21.95 02/24/2023 6:26 PM CDT Plan of Treatment Health Maintenance Due Date Last Done Comments Pap Smear 2005 Human Papillomavirus (HPV) Immunization (1 - 3-dose SCDM series) 2011 Cervical Cancer Screening (CCS) 2014 HPV/Cotest 2014 Influenza Immunization (#1) 07/07/202508/07, 11/13/2015, 12/06/2012, Additional history exists SARS-COV-2 Immunization ( season) 2025 10/22/2021, 10/14/2021, 03/20/2021, Additional history exists Respiratory Syncytial Virus (RSV) Immunization (Adult) (1 [...] Date Last Indicated ESBL 08/24/2022 08/24/2022 Insurance [facility] Care Teams Dump Truck Operator Relationship Specialty Start Date End Date Manish Aviles MD [address] [facility] [address] [place] [address] PCP - General Internal Medicine 06/05/22
--- OUTSIDE RECORDS SUMMARY | 2025-08-01 11:01 | XMS_ITS | Encounter Summary ---
Author Organization [facility] Address [facility] [place] [address] Care Team Providers Care Systems Project Manager Name Role Phone Manish Aviles MD Primary Care Provider [phone] Encounter Details Date Type Department Care Team (Late st Contact Info) Description 02/27/2023 [employer] Message Enc [facility] Medical Group Multispecialty Care - [address] [address] [address] [place] [address] Manish Aviles MD [address] [place] [address] [address] [place], [place] [id number] Medical Social History Tobacco Use Types Packs/Day [...] Depression Total Score: 18 022 3:34 PM 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
--- OUTSIDE RECORDS SUMMARY | 2025-08-01 11:01 | XMS_ITS | Encounter Summary ---
Author Organization [facility] Address [facility] [place] [address] Care Team Providers Care Leasing Manager Name Role Phone Manish Aviles MD Primary Care Provider [phone] Encounter Details Date Type Department Care Team (Late st Contact Info) Description 12/29/2022 Shaser Message Enc [facility] Medical Group Multispecialty Care - [address] [place] [address] Jemma Iraheta NP Results Social History Tobacco [...] Coronavirus/COVID-19? 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
== END 2025-08-01 10:56 | disposition home or self-care (01) ==
LOC: ANHFOHIMG 10:57
PROVIDERS: PCP Internal Medicine; Visit Provider Internal Medicine
DX: R92.8 Other abnormal and inconclusive findings on diagnostic imaging of breast (principal)
CPT/HCPCS: 76642